=== PATIENT | female | born 1975 | race Caucasian/White ===

== ENCOUNTER → 2016-07-19 | Outpatient (REF) | payer MEDICAID ==
[~2016-07-19] MED LIST: ALBU17IN INH; ALEV220C2 PO; Albuterol INH; BACT800T OR; BUSP10TA PO; BUSP15TA47 PO; CLARINEX PO; CLIN300C OR; COLA100C PO; DICL13PA TD; DICL13PA TOP; DOXY10CA PO; EFFE37.527 PO; EFFE75CA75 PO; FERGON; FERGON PO; FERR325T3 PO; FLUO10CA8 PO; FLUO10CA9 PO; FLUO20CA9 PO; HYDR-4274 PO; IBUP-1114 PO; IBUP600T26 PO; IRON65TA PO; LIDO5DIS36 TD; MOBI7.5T10 PO; PERC5TAB6 PO; PRED20TA PO; PROZ20CA11 PO; Quetiapine Fumarate PO; SERO50TA PO; TRAZ100T4 PO; TYLENOL #3 OR; VENL37CA PO; VENTOLIN NEB; VIBR100C PO; VICO5TAB PO; VIST50CA PO; VITA200016 PO; ZOLP5TAB PO; desyrel PO
== END ==
LOC: M LAB REF 15:47
PROVIDERS: ATTEND Physician Assistant
DX: J11.1 Influenza due to unidentified influenza virus with other respiratory manifestations (principal)

== ENCOUNTER 2016-07-25 17:02 | Emergency (ER) | payer MEDICAID, OTHER ==
[2016-07-25] MEDS ORDERED: PERCOCET 5MG/325MG TAB As Ordered ONE (18:04)
--- NOTE | 2016-07-25 18:32 | REP ---
LEFT KNEE, FIVE VIEWS: HISTORY: Pain. There is no acute fracture or dislocation. There is narrowing of the joint spaces. Osteophytes are present on the femur, patella and tibia. IMPRESSION: Degenerative change as described above. Signed by Tan Frausto MD 07/25/2016 06:33 P
--- NOTE | 2016-07-25 19:00 | REPUSA ---
CLINICAL HISTORY: Pain. COMMENTS: Real time sonography with duplex doppler of the left lower extremity was performed with attention to the major deep venous structures. Evaluation reveals the left common femoral, superficial femoral and popliteal veins to be completely compressible without intraluminal thrombus. There is normal spontaneous phasic flow and augmentation. The greater saphenous/common femoral vein junction is patent. No reflux was noted. IMPRESSION: No evidence of DVT in left lower extremity.. Thank you for your kind referral of this patient.
[2016-07-25] MEDS ORDERED: OXYCODONE/APAP 5MG/325MG(BULK) 1 TAB TAB As Ordered ONE (19:07)
--- NOTE | 2016-07-25 19:14 | EDDOCDS ---
Physician Documentation [facility] Name: Selin Wynn Age: 40 yrs Sex: Female : 1975 Arrival Date: 07/25/2016 Time: 17:02 Bed I9 / 22 Private MD: Jane Crow C Disposition: 07/25/16 18:50 Discharged to Home/Self Care. Impression: Pain in left knee, Rheumatoid arthritis of left knee with involvement of other organs and systems. - Condition is Stable. - Discharge Instructions: Arthritis, Nonspecific, Knee Pain. - Prescriptions for Percocet 5- 325 mg Oral Tablet - take 1 tablet by ORAL route every 6 hours As needed MDD: 4 tabs; 20 tablet. - Medication Reconciliation, Work Release Form - 1 day, Local Pharmacy Hours form. - Follow up: Jane Crow; When: 1 - 2 days. - Problem is new. - Symptoms have improved. - Notes: follow up wiht your pcp. please obtain referral to medical staff assistant. return if worsening symptoms. use your crutches as instructed Historical: - Allergies: Coconut; PENICILLINS; - Home Meds: 1. Effexor 150mg Oral daily 2. albuterol sulfate 90 mcg/actuation Inhl HFAA 2 puffs every 4-6 hours prn 3. buspirone 15 mg Oral tab 2 times per day 4. hydroxyzine HCl 10 mg Oral tab twice a day 5. ibuprofen 800 mg Oral tab 1 tab 3 times per day 6. trazodone 100 mg Oral tab 1 tab nightly - PMHx: Depression; Asthma; Rheumatoid Arthritis; Anxiety; Anemia; - PSHx: ; Tubal ligation; sinus surgery; - Social history: Smoking status: Patient uses tobacco products, current every day smoker. No barriers to communication noted, The patient speaks fluent Pashto, Speaks appropriately for age. - Family history: Not pertinent. - : The pt / caregiver states he / she is not on anticoagulants. Home medication list is obtained from the patient, [employer] import data. - Exposure Risk Screening:: None identified. PUFF IRON OPERATOR: 07/25 17:18 LMP 07/24/2016 ead Vital Signs: 17:04 BP 123 / 71; Pulse 85; Resp 18; Temp 98.6(O); Pulse Ox 99% on R/A; Weight 74.84 kg / ct3 164.99 lbs (R); Height 5 ft. 8 in. (172.72 cm) (R); Pain 10/10; 19:13 BP 120 / 70; Pulse 82; Resp 18; Temp 98(T); Pulse Ox 99% on R/A; Pain 5/10; rs3 17:04 Body Mass Index 25.09 (74.84 kg, 172.72 cm) ct3 MDM: 17:56 oxyCODONE-acetaminophen 5 mg-325 mg 2 tabs PO once ordered. ml 17:57 Knee, Complete Ordered. EDMS 17:57 US Lower Extremity R/O DVT Ordered. EDMS 18:37 Financial registration complete. gjb 18:49 oxyCODONE-acetaminophen 4 pack 5 mg-325 mg 1 packets PO once; Dispense with pt, take as ml per instruction on package ordered. 18:49 Misc. Nursing Order ordered. ml 18:49 Misc. Nursing Order ordered. ml Administered Medications: 18:08 Drug: oxyCODONE-acetaminophen 2 tabs [oxycodone-acetaminophen 5 mg-325 mg tablet (2 jjr tabs)] Route: PO; 19:11 Drug: oxyCODONE-acetaminophen 4 pack 1 packets [oxycodone-acetaminophen 5 mg-325 mg rs3 tablet (1 tabs)] {Co-Signature: [email or web address] (Makayla Hannah RN).} Route: PO; Signatures: Dispatcher [employer] EDIA Maria G Ramires MD MD ml Knapp, Jean,RN RN Sharon Gaming RN RN rs3 Dunaway, Emily,RN RN Kasey Reich Kaila Joy RN jjcrystal Hannah RN [email or web address] HUSSEIN
--- NOTE | 2016-07-25 19:14 | EDDOCDS ---
Nurse's Notes [facility] Name: Selin Wynn Age: 40 yrs Sex: Female : 1975 Arrival Date: 07/25/2016 Time: 17:02 Bed I9 / 22 Private MD: Jane Crow C Diagnosis: Pain in left knee;Rheumatoid arthritis of left knee with involvement of other organs and systems Presentation: 07/25 17:15 Presenting complaint: Patient states: pt c/o left knee pain. no known injury. pt ead reports hx of arthritis. reports worsening pain after shopping today. Adult Sepsis Screening: The patient does not have new or worsening altered mentation. Patient's respiratory rate is less than 22. Systolic blood pressure is greater than 100. Patient has a qSOFA score of 0- Negative Sepsis Screen. Suicide/Homicide risk assessment- the patient denies having any suicidal and/or homicidal ideations and does not present with any other emotional, behavioral or mental health complaints. Status: Patient is not a financial services officer or dependent. Transition of care: patient was not received from another setting of care. 17:15 Acuity: JT Level 4 ead 17:15 Method Of Arrival: Walkin/Carried/Asstd ead Triage Assessment: 17:18 General: Appears in no apparent distress, Behavior is appropriate for age, cooperative. ead Pain: Location: left knee Pain currently is 10 out of 10 on a pain scale. HIV screening NA for this visit Offered previously. Respiratory: Respiratory effort is even, unlabored. Musculoskeletal: Reports pain in left knee. FIRER KILN: 17:18 LMP 07/24/2016 ead Historical: - Allergies: Coconut; PENICILLINS; - Home Meds: 1. Effexor 150mg Oral daily 2. albuterol sulfate 90 mcg/actuation Inhl HFAA 2 puffs every 4-6 hours prn 3. buspirone 15 mg Oral tab 2 times per day 4. hydroxyzine HCl 10 mg Oral tab twice a day 5. ibuprofen 800 mg Oral tab 1 tab 3 times per day 6. trazodone 100 mg Oral tab 1 tab nightly - PMHx: Depression; Asthma; Rheumatoid Arthritis; Anxiety; Anemia; - PSHx: ; Tubal ligation; sinus surgery; - Social history: Smoking status: Patient uses tobacco products, current every day smoker. No barriers to communication noted, The patient speaks fluent Luxembourgish, Speaks appropriately for age. - Family history: Not pertinent. - : The pt / caregiver states he / she is not on anticoagulants. Home medication list is obtained from the patient, [employer] import data. - Exposure Risk Screening:: None identified. Screenin:36 Screening information is obtained from the patient. Fall risk: No risks identified. jmk Assistance ADL's: requires no assistance with activities of daily living. Abuse/DV Screen: The patient / caregiver reports he/she is: not in a situation that causes fear, pain or injury. Nutritional screening: No deficits noted. Advance Directives: Currently, there is. Advance Directives: There is no active DNR order. There is no living will. There is no Power of Elevator Constructor Helper. Advance directive information has not previously been placed in an [facility] medical record. Further advance directive information is declined. home support is adequate. Assessment: 17:36 General: Appears in no apparent distress, states history of bilateral knee pain, left jmk is greater than right. without redness swelling or ecchymosis/ no increased warmth appreciated. Is able to SLR. reports increased pain to posterior left knee with attempted dorsiflexion. 19:13 Reassessment: Patient appears in no apparent distress at this time. Patient states rs3 feeling better. Patient states symptoms have improved. Vital Signs: 17:04 BP 123 / 71; Pulse 85; Resp 18; Temp 98.6(O); Pulse Ox 99% on R/A; Weight 74.84 kg (R); ct3 Height 5 ft. 8 in. (172.72 cm) (R); Pain 10/10; 19:13 BP 120 / 70; Pulse 82; Resp 18; Temp 98(T); Pulse Ox 99% on R/A; Pain 5/10; rs3 17:04 Body Mass Index 25.09 (74.84 kg, 172.72 cm) ct3 Vitals: 17:04 Log In Time: July 25, 2016 at 17:01. ct3 ED Course: 17:03 Patient visited by Ashley Valdez PCA. ct3 17:03 Jane Crow is Private Physician. ct3 17:03 Patient moved to Waiting ct3 17:06 Patient moved to Pre RCE ct3 17:16 Triage Initiated ead 17:28 Kaila White, RN is Primary Nurse. js13 17:28 Patient moved to I9 js13 17:31 Maria G Ramires MD is Attending Physician. ml 17:31 Patient visited by Maria G Ramires MD. ml 17:38 Patient visited by Luther Richey,RN. k 18:07 Patient moved to [facility] br3 18:29 Patient moved to I9 br3 18:50 Jane Crow is Referral Physician. ml 19:06 Primary Nurse role handed off by Kaila White, RN anders 19:12 No IV's were initiated during this patient's visit. No procedures done that require rs3 assistance. Administered Medications: 18:08 Drug: oxyCODONE-acetaminophen 2 tabs [oxycodone-acetaminophen 5 mg-325 mg tablet (2 jjr tabs)] Route: PO; 19:11 Drug: oxyCODONE-acetaminophen 4 pack 1 packets [oxycodone-acetaminophen 5 mg-325 mg rs3 tablet (1 tabs)] {Co-Signature: [email or web address] (Makayla Hannah RN).} Route: PO; Order Results: There are currently no results for this order. Outcome: 18:50 Discharge ordered by Provider. 19:13 Patient left the ED. rs3 Signatures: Maria G Ramires MD MD ml Knapp, Jean,RN Kaila Brito, RN RN jjSharon WellsRN AD rs3 Alvina White br3 Ashley Valdez, GROUNDS PERSON GROUNDS PERSON ct3 Makayla Hannah RN RN [id number] Zaida Zamudio RN RN ead Jennifer Sullivan RN [email or web address] MTDD
--- NOTE | 2016-07-27 20:14 | EDDOCDS ---
Physician Documentation [facility] Name: Selin Wynn Age: 40 yrs Sex: Female : 1975 Arrival Date: 07/25/2016 Time: 17:02 Bed I9 / 22 Private MD: Jane Crow C Disposition: 07/25/16 18:50 Discharged to Home/Self Care. Impression: Pain in left knee, Rheumatoid arthritis of left knee with involvement of other organs and systems. - Condition is Stable. - Discharge Instructions: Arthritis, Nonspecific, Knee Pain. - Prescriptions for Percocet 5- 325 mg Oral Tablet - take 1 tablet by ORAL route every 6 hours As needed MDD: 4 tabs; 20 tablet. - Medication Reconciliation, Work Release Form - 1 day, Local Pharmacy Hours form. - Follow up: Jane Crow; When: 1 - 2 days. - Problem is new. - Symptoms have improved. - Notes: follow up wiht your pcp. please obtain referral to short goods drier. return if worsening symptoms. use your crutches as instructed Historical: - Allergies: Coconut; PENICILLINS; - Home Meds: 1. Effexor 150mg Oral daily 2. albuterol sulfate 90 mcg/actuation Inhl HFAA 2 puffs every 4-6 hours prn 3. buspirone 15 mg Oral tab 2 times per day 4. hydroxyzine HCl 10 mg Oral tab twice a day 5. ibuprofen 800 mg Oral tab 1 tab 3 times per day 6. trazodone 100 mg Oral tab 1 tab nightly - PMHx: Depression; Asthma; Rheumatoid Arthritis; Anxiety; Anemia; - PSHx: ; Tubal ligation; sinus surgery; - Social history: Smoking status: Patient uses tobacco products, current every day smoker. No barriers to communication noted, The patient speaks fluent Swedish, Speaks appropriately for age. - Family history: Not pertinent. - : The pt / caregiver states he / she is not on anticoagulants. Home medication list is obtained from the patient, [employer] import data. - Exposure Risk Screening:: None identified. CURRICULUM DEVELOPMENT SPECIALIST: 07/25 17:18 LMP 07/24/2016 ead Vital Signs: 17:04 BP 123 / 71; Pulse 85; Resp 18; Temp 98.6(O); Pulse Ox 99% on R/A; Weight 74.84 kg / ct3 164.99 lbs (R); Height 5 ft. 8 in. (172.72 cm) (R); Pain 10/10; 19:13 BP 120 / 70; Pulse 82; Resp 18; Temp 98(T); Pulse Ox 99% on R/A; Pain 5/10; rs3 17:04 Body Mass Index 25.09 (74.84 kg, 172.72 cm) ct3 MDM: 17:56 oxyCODONE-acetaminophen 5 mg-325 mg 2 tabs PO once ordered. ml 17:57 Knee, Complete Ordered. EDMS 17:57 US Lower Extremity R/O DVT Ordered. EDMS 18:37 Financial registration complete. gjb 18:49 oxyCODONE-acetaminophen 4 pack 5 mg-325 mg 1 packets PO once; Dispense with pt, take as ml per instruction on package ordered. 18:49 Misc. Nursing Order ordered. ml 18:49 Misc. Nursing Order ordered. ml 19:26 [facility] Payment Agreement was scanned into [employer] and attached to record. gjb 07/26 10:36 T-Sheet-- Draft Copy was scanned into [employer] and attached to record. gb 10:36 Radiology Report was scanned into [employer] and attached to record. gb Administered Medications: 07/25 18:08 Drug: oxyCODONE-acetaminophen 2 tabs [oxycodone-acetaminophen 5 mg-325 mg tablet (2 jjr tabs)] Route: PO; 19:11 Drug: oxyCODONE-acetaminophen 4 pack 1 packets [oxycodone-acetaminophen 5 mg-325 mg rs3 tablet (1 tabs)] {Co-Signature: [email or web address] (Makayla Hannah RN).} Route: PO; Signatures: Dispatcher [employer]Host EDMS Maria G Ramires MD MD ml Knapp, JeanRN RN Estefanía Snowden, Reg Reg Sharon SpicerRN RN rs3 Zaida ZamudioRN RN aKsey Reich Kaila Joy RN jjr Makayla Hannah RN [email or web address] The chart was reviewed and I authenticate all verbal orders and agree with the evaluation and treatment provided.Attachments: 19:26 [facility] Payment Agreement gjb 07/26 10:36 T-Sheet-- Draft Copy gb Chart Complete MTDD
--- NOTE | 2016-07-27 20:15 | EDDOCDS ---
Physician Documentation [facility] Name: Selin Wynn Age: 40 yrs Sex: Female : 1975 Arrival Date: 07/25/2016 Time: 17:02 Bed I9 / 22 Private MD: Jane Crow C Disposition: 07/25/16 18:50 Discharged to Home/Self Care. Impression: Pain in left knee, Rheumatoid arthritis of left knee with involvement of other organs and systems. - Condition is Stable. - Discharge Instructions: Arthritis, Nonspecific, Knee Pain. - Prescriptions for Percocet 5- 325 mg Oral Tablet - take 1 tablet by ORAL route every 6 hours As needed MDD: 4 tabs; 20 tablet. - Medication Reconciliation, Work Release Form - 1 day, Local Pharmacy Hours form. - Follow up: Jane Crow; When: 1 - 2 days. - Problem is new. - Symptoms have improved. - Notes: follow up wiht your pcp. please obtain referral to delivery merchandiser. return if worsening symptoms. use your crutches as instructed Historical: - Allergies: Coconut; PENICILLINS; - Home Meds: 1. Effexor 150mg Oral daily 2. albuterol sulfate 90 mcg/actuation Inhl HFAA 2 puffs every 4-6 hours prn 3. buspirone 15 mg Oral tab 2 times per day 4. hydroxyzine HCl 10 mg Oral tab twice a day 5. ibuprofen 800 mg Oral tab 1 tab 3 times per day 6. trazodone 100 mg Oral tab 1 tab nightly - PMHx: Depression; Asthma; Rheumatoid Arthritis; Anxiety; Anemia; - PSHx: ; Tubal ligation; sinus surgery; - Social history: Smoking status: Patient uses tobacco products, current every day smoker. No barriers to communication noted, The patient speaks fluent Japanese, Speaks appropriately for age. - Family history: Not pertinent. - : The pt / caregiver states he / she is not on anticoagulants. Home medication list is obtained from the patient, [employer] import data. - Exposure Risk Screening:: None identified. LIFE SCIENCE RESEARCH ASSISTANT: 07/25 17:18 LMP 07/24/2016 ead Vital Signs: 17:04 BP 123 / 71; Pulse 85; Resp 18; Temp 98.6(O); Pulse Ox 99% on R/A; Weight 74.84 kg / ct3 164.99 lbs (R); Height 5 ft. 8 in. (172.72 cm) (R); Pain 10/10; 19:13 BP 120 / 70; Pulse 82; Resp 18; Temp 98(T); Pulse Ox 99% on R/A; Pain 5/10; rs3 17:04 Body Mass Index 25.09 (74.84 kg, 172.72 cm) ct3 MDM: 17:56 oxyCODONE-acetaminophen 5 mg-325 mg 2 tabs PO once ordered. ml 17:57 Knee, Complete Ordered. EDMS 17:57 US Lower Extremity R/O DVT Ordered. EDMS 18:37 Financial registration complete. gjb 18:49 oxyCODONE-acetaminophen 4 pack 5 mg-325 mg 1 packets PO once; Dispense with pt, take as ml per instruction on package ordered. 18:49 Misc. Nursing Order ordered. ml 18:49 Misc. Nursing Order ordered. ml 19:26 [facility] Payment Agreement was scanned into [employer] and attached to record. gjb 07/26 10:36 T-Sheet-- Draft Copy was scanned into [employer] and attached to record. gb 10:36 Radiology Report was scanned into [employer] and attached to record. gb Administered Medications: 07/25 18:08 Drug: oxyCODONE-acetaminophen 2 tabs [oxycodone-acetaminophen 5 mg-325 mg tablet (2 jjr tabs)] Route: PO; 19:11 Drug: oxyCODONE-acetaminophen 4 pack 1 packets [oxycodone-acetaminophen 5 mg-325 mg rs3 tablet (1 tabs)] {Co-Signature: [email or web address] (Makayla Hannah RN).} Route: PO; Signatures: Dispatcher [employer] EDMS Maria G Ramries MD MD ml Knapp, JeanRN RN Estefanía Snowden, Reg Reg Sharon SpicerRN RN rs3 Zaida ZamudioRN RN Kasey Reich Kaila Joy RN jjr Makayla Hannah RN [email or web address] The chart was reviewed and I authenticate all verbal orders and agree with the evaluation and treatment provided.Attachments: 19:26 [facility] Payment Agreement gjb 07/26 10:36 T-Sheet-- Draft Copy gb Chart Complete MTDD
--- NOTE | 2016-07-27 20:15 | EDDOCDS ---
Nurse's Notes [facility] Name: Selin Wynn Age: 40 yrs Sex: Female : 1975 Arrival Date: 07/25/2016 Time: 17:02 Bed I9 / 22 Private MD: Jane Crow C Diagnosis: Pain in left knee;Rheumatoid arthritis of left knee with involvement of other organs and systems Presentation: 07/25 17:15 Presenting complaint: Patient states: pt c/o left knee pain. no known injury. pt ead reports hx of arthritis. reports worsening pain after shopping today. Adult Sepsis Screening: The patient does not have new or worsening altered mentation. Patient's respiratory rate is less than 22. Systolic blood pressure is greater than 100. Patient has a qSOFA score of 0- Negative Sepsis Screen. Suicide/Homicide risk assessment- the patient denies having any suicidal and/or homicidal ideations and does not present with any other emotional, behavioral or mental health complaints. Status: Patient is not a park services specialist or dependent. Transition of care: patient was not received from another setting of care. 17:15 Acuity: JT Level 4 ead 17:15 Method Of Arrival: Walkin/Carried/Asstd ead Triage Assessment: 17:18 General: Appears in no apparent distress, Behavior is appropriate for age, cooperative. ead Pain: Location: left knee Pain currently is 10 out of 10 on a pain scale. HIV screening NA for this visit Offered previously. Respiratory: Respiratory effort is even, unlabored. Musculoskeletal: Reports pain in left knee. JIGGER CROWN POUNCING MACHINE OPERATOR: 17:18 LMP 07/24/2016 ead Historical: - Allergies: Coconut; PENICILLINS; - Home Meds: 1. Effexor 150mg Oral daily 2. albuterol sulfate 90 mcg/actuation Inhl HFAA 2 puffs every 4-6 hours prn 3. buspirone 15 mg Oral tab 2 times per day 4. hydroxyzine HCl 10 mg Oral tab twice a day 5. ibuprofen 800 mg Oral tab 1 tab 3 times per day 6. trazodone 100 mg Oral tab 1 tab nightly - PMHx: Depression; Asthma; Rheumatoid Arthritis; Anxiety; Anemia; - PSHx: ; Tubal ligation; sinus surgery; - Social history: Smoking status: Patient uses tobacco products, current every day smoker. No barriers to communication noted, The patient speaks fluent Estonian, Speaks appropriately for age. - Family history: Not pertinent. - : The pt / caregiver states he / she is not on anticoagulants. Home medication list is obtained from the patient, [employer] import data. - Exposure Risk Screening:: None identified. Screenin:36 Screening information is obtained from the patient. Fall risk: No risks identified. jmk Assistance ADL's: requires no assistance with activities of daily living. Abuse/DV Screen: The patient / caregiver reports he/she is: not in a situation that causes fear, pain or injury. Nutritional screening: No deficits noted. Advance Directives: Currently, there is. Advance Directives: There is no active DNR order. There is no living will. There is no Power of Senior Maintenance Machinist. Advance directive information has not previously been placed in an [facility] medical record. Further advance directive information is declined. home support is adequate. Assessment: 17:36 General: Appears in no apparent distress, states history of bilateral knee pain, left jmk is greater than right. without redness swelling or ecchymosis/ no increased warmth appreciated. Is able to SLR. reports increased pain to posterior left knee with attempted dorsiflexion. 19:13 Reassessment: Patient appears in no apparent distress at this time. Patient states rs3 feeling better. Patient states symptoms have improved. Vital Signs: 17:04 BP 123 / 71; Pulse 85; Resp 18; Temp 98.6(O); Pulse Ox 99% on R/A; Weight 74.84 kg (R); ct3 Height 5 ft. 8 in. (172.72 cm) (R); Pain 10/10; 19:13 BP 120 / 70; Pulse 82; Resp 18; Temp 98(T); Pulse Ox 99% on R/A; Pain 5/10; rs3 17:04 Body Mass Index 25.09 (74.84 kg, 172.72 cm) ct3 Vitals: 17:04 Log In Time: July 25, 2016 at 17:01. ct3 ED Course: 17:03 Patient visited by Ashley Valdez PCA. ct3 17:03 Jane Crow is Private Physician. ct3 17:03 Patient moved to Waiting ct3 17:06 Patient moved to Pre RCE ct3 17:16 Triage Initiated ead 17:28 Kaila White, RN is Primary Nurse. js13 17:28 Patient moved to I js13 17:31 Maria G Ramires MD is Attending Physician. ml 17:31 Patient visited by Maria G Ramires MD. ml 17:38 Patient visited by Luther Richey,AD. jmk 18:07 Patient moved to Ultrasound br3 18:29 Patient moved to I br3 18:50 Jane Crow is Referral Physician. ml 19:06 Primary Nurse role handed off by Kaila White, RN jjr 19:12 No IV's were initiated during this patient's visit. No procedures done that require rs3 assistance. 19:17 Knee, Complete Returned. EDMS 19:17 US Lower Extremity R/O DVT Returned. EDMS 19:26 [facility] Payment Agreement was scanned into [employer] and attached to record. gjb 02 10:36 T-Sheet-- Draft Copy was scanned into [employer] and attached to record. gb 10:36 Radiology Report was scanned into [employer] and attached to record. gb Administered Medications: 07/25 18:08 Drug: oxyCODONE-acetaminophen 2 tabs [oxycodone-acetaminophen 5 mg-325 mg tablet (2 jjr tabs)] Route: PO; 19:11 Drug: oxyCODONE-acetaminophen 4 pack 1 packets [oxycodone-acetaminophen 5 mg-325 mg rs3 tablet (1 tabs)] {Co-Signature: [email or web address] (Makayla Hannah RN).} Route: PO; Order Results: Radiology Order: Knee, Complete Test: Knee, Complete REASON FOR EXAMINATION: hx RA - pain; LEFT KNEE, FIVE VIEWS:; ; HISTORY: Pain.; ; There is no acute fracture or dislocation. There is narrowing of the joint; spaces. Osteophytes are present on the femur, patella and tibia.; ; IMPRESSION:; ; Degenerative change as described above.; ; ; Signed by; Tan Frausto MD 07/25/2016 06:33 P; Radiology Order: US Lower Extremity R/O DVT Test: US Lower Extremity R/O DVT REASON FOR EXAMINATION: pain; ; CLINICAL HISTORY: Pain.; COMMENTS:; Real time sonography with duplex doppler of the left lower extremity was performed with attention to; the major deep venous structures.; Evaluation reveals the left common femoral, superficial femoral and popliteal veins to be completely; compressible without intraluminal thrombus. There is normal spontaneous phasic flow and augmentation.; The greater saphenous/common femoral vein junction is patent. No reflux was noted.; IMPRESSION:; No evidence of DVT in left lower extremity..; Thank you for your kind referral of this patient.; ; Outcome: 18:50 Discharge ordered by Provider. ml 19:13 Patient left the ED. rs3 Signatures: Dispatcher [employer] EDMS Maria G Ramires MD MD ml Luther Richey,RN RN Estefanía Snowden, Kaila Saunders, AD RN Sharon Ng RN RN rs3 Alvina White br3 Ashley Valdez, ENDBANDER ENDBANDER ct3 Makayla Hannah,RN RN js13 Zaida Zamudio RN RN ead Beck, Gabriela gjb Jennifer Sullivan RN [email or web address] Chart Complete MTDTong
== END 2016-07-25 19:13 | disposition home or self-care (01) ==
LOC: M ED 17:02
DX: M25.562 Pain in left knee (principal); F32.9 Major depressive disorder, single episode, unspecified; F41.9 Anxiety disorder, unspecified; D64.9 Anemia, unspecified; J45.909 Unspecified asthma, uncomplicated; M06.9 Rheumatoid arthritis, unspecified; Z72.0 Tobacco use; Z79.899 Other long term (current) drug therapy; Z91.018 Allergy to other foods; Z88.0 Allergy status to penicillin

== ENCOUNTER → 2016-08-25 | Outpatient (REF) | payer OTHER | LOC: M LAB REF 12:47 | PROVIDERS: ATTEND Physician Assistant Medical | DX: N39.0 Urinary tract infection, site not specified (principal) ==

== ENCOUNTER 2016-10-03 20:30 | Emergency (ER) | payer OTHER ==
[~2016-10-03 20:30] MED LIST changes: -COLA100C PO; +COLA100C3 PO
[2016-10-03] MEDS ORDERED: HYDR10T (20:40)
[2016-10-03] MEDS ORDERED: VENL150C43 (20:40)
[2016-10-03] MEDS ORDERED: CELE10TA PO (20:40)
[2016-10-03 22:27] LABS: MEAN CORPUSCULAR HEMOGLOBIN 23.4 pg (27.0-33.0); MEAN CORPUSCULAR HGB CONC 30.3 g/dl (32.0-36.5); MEAN CORPUSCULAR VOLUME 77.2 fl (80.0-96.0); RED CELL DISTRIBUTION WIDTH 17.7 % (11.5-14.5); WHITE BLOOD COUNT 5.8 K/mm3 (4.0-10.0)
[2016-10-03 22:40] LABS: CONTROL LINE HCG INT CTR LINE PRESENT
[2016-10-03 22:46] LABS: METHADONE URINE NEGATIVE (NEGATIVE)
[2016-10-03 22:58] LABS: ALBUMIN 3.8 GM/DL (3.2-5.2); ALBUMIN/GLOBULIN RATIO 1.15 (1.00-1.93); ALKALINE PHOSPHATASE 72 U/L (45-117); ALT/SGPT 15 U/L (12-78); ANION GAP 13 MEQ/L (8-16); AST/SGOT 9 U/L (15-37); BILIRUBIN,DIRECT < 0.1 MG/DL (0.0-0.2); BILIRUBIN,TOTAL 0.2 MG/DL (0.2-1.0); BLOOD UREA NITROGEN 8 MG/DL (7-18); CALCIUM LEVEL 7.9 MG/DL (8.5-10.1); CARBON DIOXIDE LEVEL 20 MEQ/L (21-32); CHLORIDE LEVEL 112 MEQ/L (98-107); CREATININE FOR GFR 0.71 MG/DL (0.55-1.02); GLOMERULAR FILTRATION RATE > 60.0 (>60); GLUCOSE, FASTING 89 MG/DL (70-105); POTASSIUM SERUM 3.5 MEQ/L (3.5-5.1); SODIUM LEVEL 145 MEQ/L (136-145); TOTAL PROTEIN 7.1 GM/DL (6.4-8.2)
[2016-10-04 04:02] VITALS: BP 119/76
== END 2016-10-04 04:30 | disposition home or self-care (01) ==
LOC: M ED 21:55
DX: F10.129 Alcohol abuse with intoxication, unspecified (principal); F32.9 Major depressive disorder, single episode, unspecified; F17.200 Nicotine dependence, unspecified, uncomplicated; Z88.0 Allergy status to penicillin; Z88.1 Allergy status to other antibiotic agents; Z88.2 Allergy status to sulfonamides; Z91.018 Allergy to other foods; Z79.899 Other long term (current) drug therapy
CPT/HCPCS: 36415; 80048; 80076; 80306; 84443; 84703; 85027; 99285; G0480

== ENCOUNTER → 2017-02-02 | Outpatient (CLI) | payer OTHER ==
[~2017-02-02] MED LIST changes: +ALBU17IN; +ANORO; +AZIT-12 PO; +CELE10TA PO; +CELE20TA PO; -COLA100C3 PO; +COLA100C5 PO; +D 50CAP; +DOXY100T2 PO; -DOXY10CA PO; +FLUO20CA19 PO; -FLUO20CA9 PO; +GABA-279; +HYDR-3713 PO; -HYDR-4274 PO; +HYDR-643; +HYDR50TA70 PO; +IBUP-1022 PO; -IBUP600T26 PO; -LIDO5DIS36 TD; +LIDO5DIS41 TD; +LOVE1INJ SC; +MOBI4TAB PO; -MOBI7.5T10 PO; +OLAN5TAB; +OXYC1TAB23 PO; +PERC5TAB12 PO; -PERC5TAB6 PO; +REME15TA; +TRAZ-136 PO; -TRAZ100T4 PO; +TRAZ1TAB14 PO; +VENL150C43; +VENL37.52 PO; -VENL37CA PO
[2017-02-02 14:55] LABS: BASO % 0.5 % (0.0-1.0); EOS # 0.1 K/mm3 (0.0-0.50); LYMPH # 1.8 K/mm3 (1.5-4.5); LYMPH % 25.2 % (24.0-44.0); MEAN CORPUSCULAR HEMOGLOBIN 23.7 pg (27.0-33.0); MEAN CORPUSCULAR VOLUME 76.2 fl (80.0-96.0); MONO # 0.3 K/mm3 (0.0-0.8); NEUTROPHILS # 4.4 K/mm3 (1.8-7.7); NEUTROPHILS % 65.8 % (36.0-66.0); RED CELL DISTRIBUTION WIDTH 16.5 % (11.5-14.5); WHITE BLOOD COUNT 6.6 K/mm3 (4.0-10.0)
[2017-02-02 15:28] LABS: ALBUMIN 3.9 GM/DL (3.2-5.2); ALBUMIN/GLOBULIN RATIO 0.98 (1.00-1.93); ALKALINE PHOSPHATASE 80 U/L (45-117); ALT/SGPT 13 U/L (12-78); ANION GAP 10 MEQ/L (8-16); AST/SGOT 7 U/L (15-37); BILIRUBIN,TOTAL 0.3 MG/DL (0.2-1.0); BLOOD UREA NITROGEN 13 MG/DL (7-18); CARBON DIOXIDE LEVEL 23 MEQ/L (21-32); CHLORIDE LEVEL 107 MEQ/L (98-107); CHOLESTEROL LEVEL 147 MG/DL (<200); CREATININE FOR GFR 0.73 MG/DL (0.55-1.02); GLOMERULAR FILTRATION RATE > 60.0 (>60); GLUCOSE, FASTING 85 MG/DL (70-105); POTASSIUM SERUM 4.4 MEQ/L (3.5-5.1); SODIUM LEVEL 140 MEQ/L (136-145); TOTAL PROTEIN 7.9 GM/DL (6.4-8.2); TRIGLYCERIDES LEVEL 64 MG/DL (<150)
--- NOTE | 2017-02-02 15:52 | REP ---
Left knee five views: Comparison is 07/25/2016. There is tricompartment osteoarthritis, not significantly changed. I suspect there is a suprapatellar effusion, not present previously. Mineralization is normal. No calcifications. No fracture or dislocation. Impression: Tricompartment osteoarthritis and probable suprapatellar effusion. Signed by Jose Crane MD 02/02/2017 03:43 P
[2017-02-04 00:06] LABS: Lyme Disease IgG/IgM Antibodie <0.91 ISR (0.00-0.90); Lyme Disease IgM Ab Quantitati <0.80 index (0.00-0.79)
[2017-02-06 09:49] LABS: ALBUMIN 4.28 GM/DL (3.29-5.55); ALBUMIN % 54.2 % (55.8-66.1); GAMMA GLOBULIN % 16.9 % (11.1-18.8)
== END ==
LOC: EDSTATUS 13:02 → M LAB 14:07
PROVIDERS: ATTEND Physician Assistant Medical
DX: E78.2 Mixed hyperlipidemia (principal); M17.12 Unilateral primary osteoarthritis, left knee; M25.562 Pain in left knee

== ENCOUNTER 2017-03-12 11:29 | Emergency (ER) | payer OTHER ==
[~2017-03-12] VITALS: Ht 175.3 cm; Wt 77.3 kg
[~2017-03-12 11:29] MED LIST changes: -ALBU17IN; -ANORO; -AZIT-12 PO; -CELE20TA PO; -D 50CAP; -GABA-279; -HYDR-3713 PO; -LOVE1INJ SC; -OLAN5TAB; -OXYC1TAB23 PO; -REME15TA; -TRAZ1TAB14 PO
[2017-03-12] MEDS ORDERED: CELE20TA PO (11:51)
[2017-03-12] MEDS ORDERED: BUSP15TA47 PO (11:51)
[2017-03-12] MEDS ORDERED: PERCOCET 5MG/325MG TAB PO ONE (12:45)
[2017-03-12] MEDS ORDERED: OXYC1TAB23 PO ×2 (14:07→14:44)
[2017-03-12 14:49] VITALS: BP 131/76
--- NOTE | 2017-03-13 13:29 | REP ---
RIGHT ANKLE SERIES: Four views of the right ankle are performed. There is a nondisplaced oblique fracture of the distal fibula. There may be tiny avulsion fractures of the medial malleolus. There is soft tissue swelling. The ankle mortise is anatomic. Please note that the acute fracture of the distal fibula is superimposed on an old fracture sustained approximately 1 year ago. Signed by Jose Lawrence MD 03/14/2017 05:12 P
[2017-03-17] MEDS ORDERED: HYDR-3713 PO (13:25)
== END 2017-03-12 15:03 | disposition home or self-care (01) ==
LOC: M ED 11:29
DX: S82.831A Other fracture of upper and lower end of right fibula, initial encounter for closed fracture (principal); X58.XXXA Exposure to other specified factors, initial encounter; Y92.89 Other specified places as the place of occurrence of the external cause; Y93.89 Activity, other specified; Y99.8 Other external cause status; J45.909 Unspecified asthma, uncomplicated; F41.9 Anxiety disorder, unspecified; F33.9 Major depressive disorder, recurrent, unspecified; Z79.899 Other long term (current) drug therapy

== ENCOUNTER 2017-03-21 05:42 | Day surgery (SDC) | payer OTHER ==
[2017-03-21] VITALS (7 sets, daily range): BP systolic 114–140; BP diastolic 59–80
[~2017-03-21] VITALS: Ht 167.6 cm; Wt 79.0 kg
[~2017-03-21 05:42] MED LIST changes: +CELE20TA PO; +HYDR-3713 PO; +OXYC1TAB23 PO
[2017-03-21] MEDS ORDERED: LIDOCAINE 1% MDV 20ML VIAL ONE (05:43)
[2017-03-21] MEDS ORDERED: ROPIvacaine 0.5% 30 ML INJECTION (J2795) ONE (05:43)
[2017-03-21] MEDS ORDERED: dexameTHASONE 10 MG/1 ML VIAL PRES.FREE (J1100) ONE (05:43)
[2017-03-21] MEDS ORDERED: LIDOCAINE 1% MDV 20ML VIAL SC ONE (06:00)
[2017-03-21] MEDS ORDERED: LR 1,000 ML IV ONE (06:00)
[2017-03-21] MEDS ORDERED: VANCOMYCIN HCL 1,000 MG, VIAL MATE ADAPTER 1 EACH in D5W 250 ML IV SCH (06:15)
[2017-03-21] MEDS ORDERED: VANCOMYCIN HCL 1,000 MG, VIAL MATE ADAPTER 1 EACH in D5W 250 ML IV ONE (06:15)
[2017-03-21] MEDS ORDERED: fentaNYL 100 MCG/2 ML INJECTION (J3010) As Ordered ONE ×2 (07:01→07:57)
[2017-03-21] MEDS ORDERED: MIDAZOLAM INJ 2 MG/2 ML VIAL (J2250) As Ordered ONE ×2 (07:01→07:57)
[2017-03-21] MEDS: MIDAZOLAM INJ 2 MG/2 ML VIAL (J2250) IV SCH ×2 (07:22→07:23)
[2017-03-21] MEDS ORDERED: PROPOFOL 500 MG/50 ML VIAL As Ordered ONE (07:57)
[2017-03-21] MEDS ORDERED: dexameTHASONE 4 MG/ML 1ML VIAL (J1100) As Ordered ONE (07:57)
[2017-03-21] MEDS ORDERED: fentaNYL 100 MCG/2 ML INJECTION (J3010) IV ONE (08:00)
[2017-03-21] MEDS ORDERED: METOCLOPRAMIDE INJ 10MG/2ML VIAL (J2765) As Ordered ONE (08:01)
[2017-03-21] MEDS ORDERED: HYDROmorphone HCL 2 MG/ML 1ML VIAL (J1170) As Ordered ONE (08:48)
[2017-03-21] MEDS ORDERED: ONDANSETRON 4MG/2ML VIAL (J2405) As Ordered ONE (09:01)
[2017-03-21] MEDS ORDERED: fentaNYL 100 MCG/2 ML INJECTION (J3010) IV PRN (10:15)
[2017-03-21] MEDS ORDERED: HYDROmorphone HCL 1 MG/ML SYRINGE (J1170) IV PRN (10:15)
[2017-03-21] MEDS ORDERED: FLEET ENEMA PR PRN (10:15)
[2017-03-21] MEDS ORDERED: ONDANSETRON 4MG/2ML VIAL (J2405) IV PRN ×2 (10:15)
[2017-03-21] MEDS ORDERED: PERCOCET 5MG/325MG TAB PO PRN (10:15)
[2017-03-21] MEDS ORDERED: oxyCODONE 5MG TAB PO PRN ×2 (10:15)
[2017-03-21] MEDS ORDERED: ACETAMINOPHEN TAB 650MG DOSE (2X325MG) PO PRN (10:15)
[2017-03-21] MEDS ORDERED: MORPHINE 2 MG/ML 1ML SYRINGE IV PRN (10:15)
[2017-03-21] MEDS ORDERED: LR 1,000 ML IV SCH (10:15)
--- NOTE | 2017-03-21 10:34 | REP ---
RIGHT ANKLE SERIES: EIGHT VIEWS. HISTORY: Fracture. Intraoperative films. 53 seconds of fluoroscopy time is reported. FINDINGS: A sequence of eight last image hold fluoroscopic spot radiographs of the right ankle document open reduction internal fixation for distal fibular fracture. Signed by Arash Baca MD 03/21/2017 03:28 P
[2017-03-21] MEDS ORDERED: NICOTINE 21MG/24HR 1 EA TRANSDERMAL TD ONE (10:45)
[2017-03-21] MEDS: LR 1,000 ML IV SCH ×3 (12:25→20:15)
[2017-03-21] MEDS: VITAMIN D 1,000 INTERNATIONAL UNITS TABLET PO SCH (13:52)
[2017-03-21] MEDS: VANCOMYCIN HCL 1,000 MG, VIAL MATE ADAPTER 1 EACH in D5W 250 ML IV SCH (19:05)
[2017-03-21] MEDS ORDERED: traZODone 100 MG TAB PO PRN (21:45)
[2017-03-22] MEDS: oxyCODONE 5MG TAB PO PRN ×3 (00:03→11:40)
[2017-03-22 06:00] VITALS: BP 134/74
[2017-03-22] MEDS: VANCOMYCIN HCL 1,000 MG, VIAL MATE ADAPTER 1 EACH in D5W 250 ML IV SCH (06:36)
[2017-03-22] MEDS ORDERED: LOVE1INJ SC (08:18)
[2017-03-22] MEDS ORDERED: PERC5TAB12 PO (08:29)
[2017-03-22] MEDS: VITAMIN D 1,000 INTERNATIONAL UNITS TABLET PO SCH (08:33)
[2017-03-22] MEDS ORDERED: ENOXAPARIN 40 MG/0.4 ML SYRINGE (J1650) SC SCH (09:00)
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
== END 2017-03-22 13:00 | disposition home or self-care (01) ==
LOC: M SDC 05:42 → M MS5PR 11:35 → M SDC 03-22 13:00
PROVIDERS: ATTEND Orthopaedic Surgery
DX: S82.61XA Displaced fracture of lateral malleolus of right fibula, initial encounter for closed fracture (principal); X58.XXXA Exposure to other specified factors, initial encounter; Y92.89 Other specified places as the place of occurrence of the external cause; Y93.89 Activity, other specified; Y99.8 Other external cause status; R06.02 Shortness of breath; M06.9 Rheumatoid arthritis, unspecified; F41.9 Anxiety disorder, unspecified; F32.9 Major depressive disorder, single episode, unspecified; R05 Cough; J45.909 Unspecified asthma, uncomplicated; J44.9 Chronic obstructive pulmonary disease, unspecified; R06.83 Snoring; N28.9 Disorder of kidney and ureter, unspecified; Z88.0 Allergy status to penicillin; Z88.1 Allergy status to other antibiotic agents; Z88.2 Allergy status to sulfonamides; Z79.899 Other long term (current) drug therapy; Z72.0 Tobacco use; Z98.51 Tubal ligation status
CPT/HCPCS: 27792; 64445; 73610; 96372; 96374; 96375; 96376; 97161; C1776

== ENCOUNTER 2017-03-30 18:51 | Emergency (ER) | payer OTHER ==
[~2017-03-30] VITALS: Ht 175.3 cm; Wt 72.7 kg
[~2017-03-30 18:51] MED LIST changes: +LOVE1INJ SC
[2017-03-30] MEDS ORDERED: ALBU17IN (19:22)
[2017-03-30] MEDS ORDERED: REME15TA (19:22)
[2017-03-30] MEDS ORDERED: ANORO (19:22)
[2017-03-30] MEDS ORDERED: OLAN5TAB (19:22)
[2017-03-30] MEDS ORDERED: TRAZ1TAB14 PO (19:22)
[2017-03-30] MEDS ORDERED: PERCOCET 5MG/325MG TAB PO ONE (20:30)
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
[2017-03-30 21:47] VITALS: BP 117/70
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
== END 2017-03-30 21:50 | disposition home or self-care (01) ==
LOC: M ED 18:51
DX: Z04.1 Encounter for examination and observation following transport accident (principal); S80.11XA Contusion of right lower leg, initial encounter; S13.4XXA Sprain of ligaments of cervical spine, initial encounter; V49.50XA Passenger injured in collision with unspecified motor vehicles in traffic accident, initial encounter; Y92.410 Unspecified street and highway as the place of occurrence of the external cause; Y93.89 Activity, other specified; Y99.8 Other external cause status; F17.210 Nicotine dependence, cigarettes, uncomplicated; Z79.01 Long term (current) use of anticoagulants; Z88.8 Allergy status to other drugs, medicaments and biological substances; Z88.0 Allergy status to penicillin; Z88.1 Allergy status to other antibiotic agents; Z88.2 Allergy status to sulfonamides

== ENCOUNTER 2017-04-13 04:48 | Emergency (ER) | payer OTHER ==
[~2017-04-13] VITALS: Ht 175.3 cm; Wt 72.7 kg
[~2017-04-13 04:48] MED LIST changes: +ALBU17IN; +ANORO; +OLAN5TAB; +REME15TA; +TRAZ1TAB14 PO
[2017-04-13 04:56] VITALS: BP 115/68
[2017-04-13] MEDS ORDERED: D 50CAP (05:06)
[2017-04-13] MEDS ORDERED: GABA-279 (05:06)
[2017-04-13] MEDS ORDERED: AZIT-12 PO (06:03)
[2017-04-13] MEDS ORDERED: AZITHROMYCIN 250 MG TAB PO ONE (06:15)
== END 2017-04-13 06:30 | disposition home or self-care (01) ==
LOC: M ED 04:48
DX: J02.0 Streptococcal pharyngitis (principal); Z79.82 Long term (current) use of aspirin; Z88.1 Allergy status to other antibiotic agents; Z88.0 Allergy status to penicillin; Z88.2 Allergy status to sulfonamides

== ENCOUNTER → 2017-05-31 | Outpatient (CLI) | payer OTHER ==
[~2017-05-31] MED LIST changes: +AZIT-12 PO; +D 50CAP; +GABA-279
--- NOTE | 2017-05-31 19:57 | ECGEPIP ---
Stationary ECG Study [facility] Test Date: 2017-05-31 Pat Name: NIVIA MUNOZ Department: Room: - Gender: F Scrap Stripper Hand: ISMAEL : 1975 Requested By: Gia DURHAM Order Number: [id number] Reading MD: Angel Osei Measurements Intervals [place] Rate: 72 P: 61 NM: 157 QRS: 74 QRSD: 90 T: 50 QT: 378 QTc: 414 Interpretive Statements SINUS RHYTHM POSSIBLE RIGHT VENTRICULAR CONDUCTION DELAY rSr' V1 & V2 new compared with 03/01/2016. Electronically Signed On 05-31-2017 19:56:58 EST by Angel Osei
== END ==
LOC: M EKG 11:04
PROVIDERS: ATTEND Registered Nurse Psychiatric/Mental Health
DX: R94.31 Abnormal electrocardiogram [ECG] [EKG] (principal)

== ENCOUNTER 2017-07-08 19:54 | Emergency (ER) | payer OTHER ==
[2017-07-08] MEDS: PERCOCET 5MG/325MG TAB PO (22:20)
== END 2017-07-08 22:32 | disposition home or self-care (01) ==
LOC: M ED 19:54
DX: S83.92XA Sprain of unspecified site of left knee, initial encounter (principal); X50.9XXA Other and unspecified overexertion or strenuous movements or postures, initial encounter; Y92.009 Unspecified place in unspecified non-institutional (private) residence as the place of occurrence of the external cause; M25.562 Pain in left knee; G89.29 Other chronic pain; M06.9 Rheumatoid arthritis, unspecified; F17.210 Nicotine dependence, cigarettes, uncomplicated; Z79.899 Other long term (current) drug therapy; Z88.8 Allergy status to other drugs, medicaments and biological substances; Z88.1 Allergy status to other antibiotic agents; Z88.0 Allergy status to penicillin; Z88.2 Allergy status to sulfonamides
CPT/HCPCS: 73564

== ENCOUNTER 2017-08-30 13:36 | Emergency (ER) | payer OTHER ==
[2017-08-30] MEDS: PERCOCET 5MG/325MG TAB PO (15:31)
== END 2017-08-30 17:11 | disposition home or self-care (01) ==
LOC: M ED 13:36
DX: M25.571 Pain in right ankle and joints of right foot (principal); J06.9 Acute upper respiratory infection, unspecified; Z79.899 Other long term (current) drug therapy; Z88.8 Allergy status to other drugs, medicaments and biological substances; Z88.1 Allergy status to other antibiotic agents; Z88.0 Allergy status to penicillin; Z88.2 Allergy status to sulfonamides; Z87.891 Personal history of nicotine dependence
CPT/HCPCS: 73610

== ENCOUNTER 2017-11-27 11:43 | Emergency (ER) | payer OTHER ==
[2017-11-27 13:28] LABS: BASO % 0.3 % (0.0-1.0); EOS # 0.1 10^3/uL (0.0-0.50); EOS % 0.7 % (0.0-3.0); HEMATOCRIT 33.6 % (36.0-47.0); HEMOGLOBIN 9.9 g/dl (12.0-15.5); IMMATURE GRANULOCYTE % 0.3 % (0-3.0); LYMPH # 1.4 10^3/uL (1.5-4.5); LYMPH % 11.4 % (24.0-44.0); MEAN CORPUSCULAR HGB CONC 29.5 g/dl (32.0-36.5); MEAN CORPUSCULAR VOLUME 74.5 fl (80.0-96.0); MONO # 0.6 10^3/uL (0.0-0.8); MONO % 5.2 % (0.0-5.0); NEUTROPHILS # 10.1 10^3/uL (1.8-7.7); NEUTROPHILS % 82.1 % (36.0-66.0); PLATELET COUNT, AUTOMATED 237 10^3/uL (150-450); RED BLOOD COUNT 4.51 10^6/uL (4.00-5.40); RED CELL DISTRIBUTION WIDTH 16.2 % (11.5-14.5); WHITE BLOOD COUNT 12.3 10^3/uL (4.0-10.0)
[2017-11-27 13:45] LABS: CONTROL LINE HCG INT CTR LINE PRESENT; HCG, SERUM QUALITATIVE NEGATIVE (NEGATIVE)
[2017-11-27 13:54] LABS: ANION GAP 7 MEQ/L (8-16); BLOOD UREA NITROGEN 17 MG/DL (7-18); CALCIUM LEVEL 8.5 MG/DL (8.5-10.1); CARBON DIOXIDE LEVEL 25 MEQ/L (21-32); CHLORIDE LEVEL 107 MEQ/L (98-107); CK-MB VALUE MASS < 1.0 NG/ML (<3.6); CPK CREATINE PHOSPHOKINASE 20 U/L (26-192); CREATININE FOR GFR 0.75 MG/DL (0.55-1.30); GLOMERULAR FILTRATION RATE > 60.0 (>60); GLUCOSE, FASTING 94 MG/DL (70-100); POTASSIUM SERUM 4.2 MEQ/L (3.5-5.1); SODIUM LEVEL 139 MEQ/L (136-145); TROPONIN I < 0.02 NG/ML (< 0.10)
[2017-11-27] MEDS: NS 1,000 ML IV (14:45)
[2017-11-27] MEDS ORDERED: ISOVUE-370 76% 100ML VIAL (Q9967) As Ordered (14:57)
[2017-11-27] MEDS: KETOROLAC 30 MG/ML VIAL (J1885) IV (15:00)
[2017-11-27 18:08] LABS: CK-MB VALUE MASS < 1.0 NG/ML (<3.6); CPK CREATINE PHOSPHOKINASE 20 U/L (26-192); TROPONIN I < 0.02 NG/ML (< 0.10)
== END 2017-11-27 18:42 | disposition home or self-care (01) ==
LOC: M ED 11:43
DX: R07.9 Chest pain, unspecified (principal); M25.569 Pain in unspecified knee; D64.9 Anemia, unspecified; J44.9 Chronic obstructive pulmonary disease, unspecified; G47.00 Insomnia, unspecified; F17.200 Nicotine dependence, unspecified, uncomplicated; Z83.6 Family history of other diseases of the respiratory system; Z83.3 Family history of diabetes mellitus; Z80.9 Family history of malignant neoplasm, unspecified; Z88.8 Allergy status to other drugs, medicaments and biological substances; Z88.0 Allergy status to penicillin; Z88.2 Allergy status to sulfonamides; Z79.899 Other long term (current) drug therapy
CPT/HCPCS: Q9967

== ENCOUNTER 2018-03-09 15:50 | Emergency (ER) | payer OTHER ==
[2018-03-09] MEDS ORDERED: methylPREDNISolone INJ 125 MG/2 ML VIAL (J2930) IV (19:30)
[2018-03-09] MEDS: diazePAM 5 MG TAB PO (20:15)
[2018-03-09] MEDS: methylPREDNISolone INJ 125 MG/2 ML VIAL (J2930) IM (20:15)
[2018-03-09] MEDS: OXYCODONE/APAP 5MG/325MG(BULK FOR ED) 1 TABLET PO (21:42)
== END 2018-03-09 21:52 | disposition home or self-care (01) ==
LOC: M ED 15:50
DX: M54.32 Sciatica, left side (principal); J45.909 Unspecified asthma, uncomplicated; J44.9 Chronic obstructive pulmonary disease, unspecified; F41.9 Anxiety disorder, unspecified; F32.9 Major depressive disorder, single episode, unspecified; D64.9 Anemia, unspecified; Z72.0 Tobacco use; Z79.899 Other long term (current) drug therapy; Z79.82 Long term (current) use of aspirin; Z88.0 Allergy status to penicillin; Z88.2 Allergy status to sulfonamides
CPT/HCPCS: J2930

== ENCOUNTER → 2018-04-03 | Outpatient (CLI) | payer OTHER ==
[2018-04-03 10:46] LABS: BASO % 0.5 % (0.0-1.0); EOS # 0.2 10^3/uL (0.0-0.50); EOS % 3.8 % (0.0-3.0); HEMATOCRIT 33.9 % (36.0-47.0); IMMATURE GRANULOCYTE % 0.2 % (0-3.0); LYMPH % 34.3 % (24.0-44.0); MEAN CORPUSCULAR HEMOGLOBIN 22.7 pg (27.0-33.0); MEAN CORPUSCULAR HGB CONC 29.5 g/dl (32.0-36.5); MEAN CORPUSCULAR VOLUME 76.9 fl (80.0-96.0); MONO # 0.4 10^3/uL (0.0-0.8); MONO % 7.3 % (0.0-5.0); NEUTROPHILS # 3.1 10^3/uL (1.8-7.7); NEUTROPHILS % 53.9 % (36.0-66.0); PLATELET COUNT, AUTOMATED 170 10^3/uL (150-450); RED BLOOD COUNT 4.41 10^6/uL (4.00-5.40); RED CELL DISTRIBUTION WIDTH 19.8 % (11.5-14.5); WHITE BLOOD COUNT 5.8 10^3/uL (4.0-10.0)
[2018-04-03 11:06] LABS: ESTIMATED AVERAGE GLUCOSE 111 MG/DL (60-110); HEMOGLOBIN A1c 5.5 %
[2018-04-03 11:22] LABS: ALBUMIN 3.9 GM/DL (3.2-5.2); ALBUMIN/GLOBULIN RATIO 1.26 (1.00-1.93); ALKALINE PHOSPHATASE 74 U/L (45-117); ALT/SGPT 17 U/L (12-78); ANION GAP 5 MEQ/L (8-16); AST/SGOT 7 U/L (7-37); BILIRUBIN,DIRECT 0.1 MG/DL (0.0-0.2); BILIRUBIN,TOTAL 0.6 MG/DL (0.2-1.0); BLOOD UREA NITROGEN 16 MG/DL (7-18); CALCIUM LEVEL 8.2 MG/DL (8.5-10.1); CARBON DIOXIDE LEVEL 27 MEQ/L (21-32); CHLORIDE LEVEL 109 MEQ/L (98-107); CHOLESTEROL LEVEL 128 MG/DL (<200); CHOLESTEROL RISK RATIO 3.555 (<5); CREATININE FOR GFR 0.73 MG/DL (0.55-1.30); GLOMERULAR FILTRATION RATE > 60.0 (>58); GLUCOSE, FASTING 96 MG/DL (70-100); HDL CHOLESTEROL 36 MG/DL (>40); LDL CHOLESTEROL 62 MG/DL (<100); NON-HDL-C 92 MG/DL; POTASSIUM SERUM 4.2 MEQ/L (3.5-5.1); SODIUM LEVEL 141 MEQ/L (136-145); TRIGLYCERIDES LEVEL 152 MG/DL (<150)
[2018-04-03 11:23] LABS: PROLACTIN 10.2 NG/ML; TOTAL 25(OH) VITAMIN D 25.6 NG/ML (30.0-100.0)
== END ==
LOC: M LAB 10:05
DX: F31.81 Bipolar II disorder (principal)
CPT/HCPCS: 82248

== ENCOUNTER 2018-11-15 18:37 | Emergency (ER) | payer OTHER ==
[~2018-11-15] VITALS: Ht 170.2 cm; Wt 75.0 kg
[~2018-11-15 18:37] MED LIST changes: +ARIP1TAB6 PO; +DICL50TAB; +EFFE37.5 PO; -EFFE37.527 PO; +EFFE75CA2 PO; -EFFE75CA75 PO; +GABA-1171; -GABA-279; +SUDA30TA8 PO; +TRAM50TA2; +TRAM50TA2 PO; -TRAZ-136 PO; +TRAZ-163 PO; +TYLE500T78 PO
[2018-11-15] MEDS ORDERED: IBUP-1022 PO (18:45)
[2018-11-15] MEDS ORDERED: ABIL300I (18:45)
--- NOTE | 2018-11-15 19:50 | REP ---
Nickel: Right knee pain. Technique: AP, lateral, bilateral oblique and sunrise views of the right knee. Comparison: 02/01/2018. Findings: Early advanced tricompartmental osteoarthritic degenerative changes include subchondral sclerosis, joint space obliteration, osteophytosis and chondrocalcinosis. No evidence for acute fracture dislocation. Suprapatellar effusion suggested. Impression: 1. Advanced tricompartmental osteoarthritic degenerative changes and suprapatellar effusion. 2. No acute fracture dislocation. Electronically Signed by Monster Hickman MD 11/15/2018 07:41 P
[2018-11-15] MEDS ORDERED: ACET650T15 PO (21:22)
[2018-11-15] MEDS ORDERED: TRAM50TA2 PO (21:22)
[2018-11-15] MEDS ORDERED: traMADol 50 MG TAB (BULK 4 TAB ED) PO ONE (21:30)
[2018-11-15 21:39] VITALS: BP 124/81
== END 2018-11-15 21:41 | disposition home or self-care (01) ==
LOC: M ED 18:37
DX: M25.461 Effusion, right knee (principal); M17.11 Unilateral primary osteoarthritis, right knee; J44.9 Chronic obstructive pulmonary disease, unspecified; D64.9 Anemia, unspecified; M25.50 Pain in unspecified joint; F17.210 Nicotine dependence, cigarettes, uncomplicated; Z88.0 Allergy status to penicillin; Z88.2 Allergy status to sulfonamides; Z88.6 Allergy status to analgesic agent; Z79.899 Other long term (current) drug therapy

== ENCOUNTER → 2018-11-27 | Outpatient (REF) | payer OTHER ==
[~2018-11-27] MED LIST changes: +ABIL300I; +ACET650T15 PO
[2018-11-27 17:11] LABS: C REACTIVE PROTEIN QUANTITATIV 0.42 MG/DL (0.00-0.30); RHEUMATOID FACTOR QUANT 10.4 IU/ML (<15.0)
[2018-11-27 17:24] LABS: BASO % 0.6 % (0.0-1.0); EOS # 0.1 10^3/uL (0.0-0.50); EOS % 1.3 % (0.0-3.0); HEMATOCRIT 33.2 % (36.0-47.0); HEMOGLOBIN 9.4 g/dl (12.0-15.5); LYMPH # 2.1 10^3/uL (1.5-4.5); LYMPH % 28.6 % (24.0-44.0); MEAN CORPUSCULAR HEMOGLOBIN 20.3 pg (27.0-33.0); MEAN CORPUSCULAR HGB CONC 28.3 g/dl (32.0-36.5); MEAN CORPUSCULAR VOLUME 71.6 fl (80.0-96.0); MONO # 0.4 10^3/uL (0.0-0.8); MONO % 5.6 % (0.0-5.0); NEUTROPHILS # 4.6 10^3/uL (1.8-7.7); NEUTROPHILS % 63.5 % (36.0-66.0); PLATELET COUNT, AUTOMATED 216 10^3/uL (150-450); RED BLOOD COUNT 4.64 10^6/uL (4.00-5.40); WHITE BLOOD COUNT 7.2 10^3/uL (4.0-10.0)
[2018-11-27 18:06] LABS: ERYTHROCYTE SEDIMENTATION RATE 22 mm/hr (0-20)
[2018-11-30 00:08] LABS: ANTINUCLEAR ANTIBODIES DIRECT Negative (Negative); Lyme Disease IgG/IgM Antibodie <0.91 ISR (0.00-0.90); Lyme Disease IgM Ab Quantitati <0.80 index (0.00-0.79)
== END ==
LOC: M LABDRAW1 16:07
PROVIDERS: ATTEND Orthopaedic Surgery
DX: M17.12 Unilateral primary osteoarthritis, left knee (principal)

== ENCOUNTER → 2019-02-04 | Outpatient (REF) | payer OTHER, MEDICAID ==
[2019-02-04 18:49] LABS: APPEARANCE, URINE CLOUDY (CLEAR); BACTERIA, URINE AUTO 2+ (NEGATIVE); BILIRUBIN, URINE AUTO NEGATIVE (NEGATIVE); BLOOD, URINE BLOOD 1+ (NEGATIVE); COLOR, URINE YELLOW (YELLOW); GLUCOSE, URINE (UA) AUTO NEGATIVE (NEGATIVE); KETONE, URINE AUTO TRACE mg/dL (NEGATIVE); LEUKOCYTE ESTERASE, URINE AUTO 3+ (NEGATIVE); NITRITE, URINE AUTO POSITIVE (NEGATIVE); PROTEIN, URINE AUTO 1+ mg/dL (NEGATIVE); RBC, URINE AUTO 7 /HPF (0-3); SQUAMOUS EPITHELIAL CELL UR AU 16 /HPF (0-6); WBC, URINE AUTO TNTC /HPF (0-3)
[2019-02-05 15:24] LABS: CHLAMYDIA DNA AMPLIFICATION NEGATIVE (NEGATIVE); GC DNA AMPLIFICATION NEGATIVE (NEGATIVE)
== END ==
LOC: M LAB REF 17:56
PROVIDERS: ATTEND Nurse Practitioner Adult Health
DX: Z01.818 Encounter for other preprocedural examination (principal); N39.0 Urinary tract infection, site not specified

== ENCOUNTER 2019-04-13 18:55 | Emergency (ER) | payer MEDICAID, OTHER ==
[~2019-04-13] VITALS: Ht 175.3 cm; Wt 66.1 kg
[2019-04-13] MEDS ORDERED: TRAZ10TA PO (19:10)
[2019-04-13] MEDS ORDERED: ULTR50TA8 PO (20:14)
[2019-04-13] MEDS ORDERED: traMADol 50 MG TAB PO ONE (20:15)
[2019-04-13 20:27] VITALS: BP 102/58
--- NOTE | 2019-04-14 11:35 | REP ---
RIGHT KNEE, FOUR VIEWS: Four views of right knee performed. No acute fracture or dislocation is seen. Total knee prosthesis is in good position with no adjacent abnormal lucency at the interphase between the bone and prosthetic components. IMPRESSION: No acute fracture or dislocation. Electronically Signed by Jose Lawrence MD 04/14/2019 12:36 P
== END 2019-04-13 20:28 | disposition home or self-care (01) ==
LOC: M ED 18:55
DX: S83.91XA Sprain of unspecified site of right knee, initial encounter (principal); W18.43XA Slipping, tripping and stumbling without falling due to stepping from one level to another, initial encounter; Y92.89 Other specified places as the place of occurrence of the external cause; Z96.651 Presence of right artificial knee joint; Z88.0 Allergy status to penicillin; Z88.8 Allergy status to other drugs, medicaments and biological substances; Z88.2 Allergy status to sulfonamides

== ENCOUNTER → 2019-05-07 | Outpatient (REF) | payer OTHER, MEDICAID ==
[~2019-05-07] MED LIST changes: +TRAZ10TA PO; +ULTR50TA8 PO
[2019-05-07 20:27] LABS: PERCENT SATURATION 2.8 % (13.2-45.0)
[2019-05-07 20:35] LABS: FOLATE 6.1 NG/ML (>5.4)
== END ==
LOC: M LAB REF 18:51
PROVIDERS: ATTEND Nurse Practitioner Adult Health
DX: D64.9 Anemia, unspecified (principal)

== ENCOUNTER → 2019-05-10 | Outpatient (CLI) | payer OTHER, MEDICAID ==
[2019-05-10 16:59] LABS: FERRITIN 5 NG/ML (8-252)
[2019-05-10 17:14] LABS: VITAMIN B12 LEVEL 320 PG/ML (247-911)
[2019-05-10 17:32] LABS: BASO % 0.5 % (0.0-1.0); EOS # 0.1 10^3/uL (0.0-0.5); EOS % 1.7 % (0.0-3.0); HEMATOCRIT 33.2 % (36.0-47.0); HEMOGLOBIN 9.4 g/dl (12.0-15.5); LYMPH # 2.2 10^3/uL (1.5-5.0); LYMPH % 38.7 % (24.0-44.0); MEAN CORPUSCULAR HEMOGLOBIN 20.8 pg (27.0-33.0); MEAN CORPUSCULAR HGB CONC 28.3 g/dl (32.0-36.5); MEAN CORPUSCULAR VOLUME 73.3 fl (80.0-96.0); MONO # 0.4 10^3/uL (0.0-0.8); MONO % 7.4 % (0.0-5.0); NEUTROPHILS % 51.4 % (36.0-66.0); PLATELET COUNT, AUTOMATED 160 10^3/uL (150-450); RED BLOOD COUNT 4.53 10^6/uL (4.00-5.40); WHITE BLOOD COUNT 5.8 10^3/uL (4.0-10.0)
== END ==
LOC: M WUC 14:37
PROVIDERS: ATTEND Nurse Practitioner Adult Health
DX: D64.9 Anemia, unspecified (principal)

== ENCOUNTER 2019-06-13 12:11 | Emergency (ER) | payer MEDICAID, OTHER ==
[~2019-06-13] VITALS: Ht 175.3 cm; Wt 62.3 kg
[~2019-06-13 12:11] MED LIST changes: +FLUO10CA15 PO; -FLUO10CA8 PO
--- NOTE | 2019-06-13 12:50 | REP ---
Clinical: Acute chest pain . Comparison: 11/27/2017 . Findings: The mediastinum and cardiac silhouette are stable and within normal limits for portable technique. The lung [place] are clear without acute consolidation, effusion, or pneumothorax. Skeletal structures are intact. Impression: No acute cardiopulmonary process appreciated. Electronically Signed by Monster Hickman MD 06/13/2019 12:42 P
[2019-06-13] MEDS ORDERED: PANTOPRAZOLE 40MG INJ (PROTONIX) (C9113) IV ONE (13:00)
[2019-06-13 13:04] LABS: BASO % 0.5 % (0.0-1.0); EOS # 0.2 10^3/uL (0.0-0.5); EOS % 2.4 % (0.0-3.0); HEMATOCRIT 33.3 % (36.0-47.0); HEMOGLOBIN 9.7 g/dl (12.0-15.5); LYMPH # 2.2 10^3/uL (1.5-5.0); LYMPH % 28.8 % (24.0-44.0); MEAN CORPUSCULAR HGB CONC 29.1 g/dl (32.0-36.5); MEAN CORPUSCULAR VOLUME 72.2 fl (80.0-96.0); MONO # 0.6 10^3/uL (0.0-0.8); MONO % 7.4 % (0.0-5.0); NEUTROPHILS # 4.6 10^3/uL (1.5-8.5); NEUTROPHILS % 60.6 % (36.0-66.0); PLATELET COUNT, AUTOMATED 187 10^3/uL (150-450); RED BLOOD COUNT 4.61 10^6/uL (4.00-5.40); WHITE BLOOD COUNT 7.6 10^3/uL (4.0-10.0)
[2019-06-13 13:55] LABS: ALBUMIN 3.6 GM/DL (3.2-5.2); ALT/SGPT 13 U/L (12-78); BILIRUBIN,DIRECT < 0.1 MG/DL (0.0-0.2); BILIRUBIN,TOTAL 0.4 MG/DL (0.2-1.0); BLOOD UREA NITROGEN 8 MG/DL (7-18); CALCIUM LEVEL 8.6 MG/DL (8.5-10.1); CARBON DIOXIDE LEVEL 20 MEQ/L (21-32); CHLORIDE LEVEL 112 MEQ/L (98-107); CK-MB VALUE MASS < 1.0 NG/ML (<3.6); CPK CREATINE PHOSPHOKINASE 46 U/L (26-192); CREATININE FOR GFR 0.63 MG/DL (0.55-1.30); GLOMERULAR FILTRATION RATE > 60.0 (>58); GLUCOSE, FASTING 85 MG/DL (70-100); LIPASE 87 U/L (73-393); MB/CK RELATIVE INDEX 2.17 (< OR =4); POTASSIUM SERUM 4.4 MEQ/L (3.5-5.1); SODIUM LEVEL 141 MEQ/L (136-145); TOTAL PROTEIN 6.9 GM/DL (6.4-8.2); TROPONIN I < 0.02 NG/ML (< 0.10)
[2019-06-13] MEDS ORDERED: IPRATROPIUM 0.5MG/ALBUTEROL 2.5MG INH SOL UD 3ML (DUONEB)(J7620) NEB ONE (14:15)
[2019-06-13 16:00] VITALS: BP 88/54
--- NOTE | 2019-06-13 16:12 | REP ---
RIGHT UPPER QUADRANT ULTRASOUND: Real-time sonographic evaluation of the right upper quadrant is performed. The gallbladder demonstrates no evidence of intraluminal sludge or calculi, wall thickening or pericholecystic fluid. There is no intrahepatic or extrahepatic biliary dilatation, common bile duct measuring 4 mm. The liver and pancreas demonstrate no gross abnormality. Pancreas is not well seen due to overlying bowel gas. Right kidney demonstrates no hydronephrosis with normal size 11.8 cm in length. IMPRESSION: Essentially negative right upper quadrant ultrasound. Electronically Signed by Jose Lawrence MD 06/13/2019 04:35 P
--- NOTE | 2019-06-13 21:10 | ECGEPIP ---
[facility] - ED Test Date: 2019-06-13 Pat Name: NIVIA MUNOZ Department: Room: - Gender: Female Nursing Education Consultant: sonja : 1975 Requested By: Rick Mcpherson Order Number: [id number] Reading MD: Rick Argueta Measurements Intervals [place] Rate: 63 P: 9 DE: 152 QRS: 68 QRSD: 82 T: 47 QT: 415 QTc: 426 Interpretive Statements SINUS RHYTHM INCOMPLETE RIGHT BUNDLE BRANCH BLOCK SIMILAR TO 11/27/17 Electronically Signed on 06-13-2019 21:10:02 EST by Rick Argueta
--- NOTE | 2019-06-16 08:39 | ECGEPIP ---
[facility] - ED Test Date: 2019-06-13 Pat Name: NIVIA MUNOZ Department: Room: - Gender: Female Stator Winder: : 1975 Requested By: Rick Mcpherson Order Number: [id number] Reading MD: Rick Argueta Measurements Intervals [place] Rate: 59 P: -48 NM: 138 QRS: 70 QRSD: 84 T: 51 QT: 412 QTc: 410 Interpretive Statements SINUS BRADYCARDIA INCOMPLETE RIGHT BUNDLE BRANCH BLOCK SIMILAR TO 11/27/17 Electronically Signed on 06-16-2019 8:38:58 EST by Rick Argueta
== END 2019-06-13 16:00 | disposition left against medical advice (07) ==
LOC: M ED 12:11
DX: R10.13 Epigastric pain (principal); J44.9 Chronic obstructive pulmonary disease, unspecified; I45.10 Unspecified right bundle-branch block; R00.1 Bradycardia, unspecified; M06.9 Rheumatoid arthritis, unspecified; F32.9 Major depressive disorder, single episode, unspecified; D50.9 Iron deficiency anemia, unspecified; F41.9 Anxiety disorder, unspecified; F17.210 Nicotine dependence, cigarettes, uncomplicated; Z88.0 Allergy status to penicillin; Z88.2 Allergy status to sulfonamides; Z88.6 Allergy status to analgesic agent; Z79.899 Other long term (current) drug therapy
CPT/HCPCS: 71045; 76705; 80048; 80076; 82550; 82553; 83690; 84443; 85025; 93005; 93041; 94640; 94760; 96374; 99285; C9113

== ENCOUNTER 2019-08-21 05:49 | Inpatient (IN) | payer OTHER ==
[2019-08-21] VITALS (15 sets, daily range): BP systolic 96–116; BP diastolic 56–72
[~2019-08-21] VITALS: Ht 175.3 cm; Wt 63.9 kg
[~2019-08-21 05:49] MED LIST changes: -FLUO20CA19 PO; +FLUO20CA22 PO; -TRAZ-163 PO; +TRAZ-257 PO; -TRAZ10TA PO; +TRAZ1TAB12 PO
[2019-08-21] MEDS ORDERED: IPRATROPIUM 0.5MG/ALBUTEROL 2.5MG INH SOL UD 3ML (DUONEB)(J7620) NEB ONE (07:00)
[2019-08-21 07:22] LABS: BASO % 0.4 % (0.0-1.0); EOS # 0.4 10^3/uL (0.0-0.5); EOS % 4.4 % (0.0-3.0); HEMATOCRIT 22.4 % (36.0-47.0); LYMPH # 1.1 10^3/uL (1.5-5.0); LYMPH % 13.5 % (24.0-44.0); MEAN CORPUSCULAR HEMOGLOBIN 21.3 pg (27.0-33.0); MEAN CORPUSCULAR HGB CONC 29.5 g/dl (32.0-36.5); MEAN CORPUSCULAR VOLUME 72.3 fl (80.0-96.0); MONO # 0.5 10^3/uL (0.0-0.8); MONO % 5.8 % (0.0-5.0); NEUTROPHILS # 6.4 10^3/uL (1.5-8.5); NEUTROPHILS % 75.5 % (36.0-66.0); PLATELET COUNT, AUTOMATED 177 10^3/uL (150-450); WHITE BLOOD COUNT 8.4 10^3/uL (4.0-10.0)
[2019-08-21 07:23] LABS: HEMOGLOBIN 6.6 g/dl (12.0-15.5)
[2019-08-21 07:42] LABS: BLOOD UREA NITROGEN 14 MG/DL (7-18); CALCIUM LEVEL 8.1 MG/DL (8.5-10.1); CARBON DIOXIDE LEVEL 25 MEQ/L (21-32); CHLORIDE LEVEL 109 MEQ/L (98-107); CK-MB VALUE MASS < 1.0 NG/ML (<3.6); CPK CREATINE PHOSPHOKINASE 26 U/L (26-192); CREATININE FOR GFR 0.73 MG/DL (0.55-1.30); GLOMERULAR FILTRATION RATE > 60.0 (>58); GLUCOSE, FASTING 94 MG/DL (70-100); MB/CK RELATIVE INDEX 3.85 (< OR =4); POTASSIUM SERUM 3.1 MEQ/L (3.5-5.1); SODIUM LEVEL 141 MEQ/L (136-145); TROPONIN I < 0.02 NG/ML (< 0.10)
--- NOTE | 2019-08-21 08:13 | REP ---
Portable chest x-ray: Single view. History: Chest pain. Comparison chest x-ray: June 13, 2019. Findings: Monitoring electrodes overlie the chest. Lungs are well inflated and free of infiltrate. There is a skin fold along the right lateral chest wall. The pleural angles are sharp. Cardiomediastinal silhouette is unremarkable. Pulmonary vasculature is not increased. Impression: No active disease. Electronically Signed by Arash Baca MD 08/21/2019 08:05 A
[2019-08-21] MEDS ORDERED: PANTOPRAZOLE 40MG INJ (PROTONIX) (C9113) IV ONE (08:15)
[2019-08-21] MEDS ORDERED: IBUP200T45 PO (08:33)
[2019-08-21] MEDS ORDERED: VENTAER INH (08:33)
[2019-08-21] MEDS ORDERED: MELA3TAB63 PO (08:33)
[2019-08-21] MEDS ORDERED: POTASSIUM CHLORIDE 10 MEQ SR TABLET PO ONE (09:00)
[2019-08-21 12:29] LABS: FERRITIN 7 NG/ML (8-252); IRON (FE) 11 UG/DL (50-170); PERCENT SATURATION 3.2 % (13.2-45.0); TOTAL IRON BINDING CAPACITY 344 UG/DL (250-450)
[2019-08-21] MEDS ORDERED: IPRATROPIUM 0.5MG/ALBUTEROL 2.5MG INH SOL UD 3ML (DUONEB)(J7620) NEB PRN (14:00)
--- NOTE | 2019-08-21 14:35 | HPEPDOC ---
[facility] Medical History & Physical Date of Admission Aug 21, 2019 Date of Service: Aug 21, 2019 Attending Physician: ZULEIMA JAIME MD History and Physical CHIEF COMPLAINT: Back pain HISTORY OF PRESENT ILLNESS: 43-year-old female with past medical history of iron deficiency anemia, noncompliant with iron supplementation, arthritis, asthma, anxiety/depression presents from home with back pain. Patient has had mid back pain for the past 4-6 weeks, presented to the emergency department a few weeks a go and left AGAINST MEDICAL ADVICE at the time as she believed that no one was helping her or taking her seriously. Patient reports radiation of mid back pain to left thorax/rib cage, left upper quadrant of the abdomen, sharp, intermittent, persistent over the past 2 months. She appears to be in moderate distress when describing her pain and during examination, although when speaking or with her focus redirected she appears more comfortable. She has no other associated symptoms, denies any shortness of breath, nausea, vomiting, abdominal pain, diarrhea or constipation. She denies any melena or hematemesis. In the ED, she is found to have significantly low hemoglobin, ordered to receive 2 units of packed red blood cells. Patient is adamant that she does not take any NSAIDs and only takes Tylenol for her pain. 10 point review of system is negative except for above PAST MEDICAL HISTORY: 1. Arthritis. 2. Anxiety/depression. 3. Asthma/COPD PAST SURGICAL HISTORY: 1. Right knee replacement. SOCIAL HISTORY: Smokes one to 2 packs per day Denies alcohol use. Smokes marijuana FAMILY HISTORY: Father with heart disease ALLERGIES: Please see below. HOME MEDICATIONS: Please see below. PHYSICAL EXAMINATION: VITAL SIGNS: Please see below. GENERAL: Mild distress HEENT: Normocephalic, atraumatic, moist mucous membranes NECK: Supple CARDIOVASCULAR EXAMINATION: S1, S2, no murmurs RESPIRATORY EXAMINATION: Clear to auscultation, no wheezing, moderate to severe tenderness to palpation of mid/low back with radiation to left thorax and left upper quadrant ABDOMINAL EXAMINATION: Soft, moderate left upper quadrant tenderness to palpation, nondistended, positive bowel sounds EXTREMITIES: Range of motion intact SKIN: No rash NEUROLOGICAL EXAMINATION: Alert and oriented 3, no focal deficits PSYCHIATRIC EXAMINATION: Calm and cooperative LABORATORY DATA: See below. IMAGING: Chest x-ray without acute pathology MICROBIOLOGY: Please see below. ASSESSMENT: 43-year-old female with past medical history of iron deficiency anemia, asthma, anxiety/depression, and arthritis presents with severe anemia and back pain. PLAN: 1. Severe anemia. Order to receive 2 units of packed red blood cells by the emergency department, Stool OB pending, likely due to noncompliance, significantly iron deficient, will provide IV iron infusion of Venofer 100 mg daily while hospitalized, followed by outpatient oral supplementation. Denies NSAID use, melena or hematemesis, will monitor. 2. Back pain. With radiation to chest/upper abdomen, vague distribution, unknown etiology given presentation and physical examination, further assessment with CT chest, abdomen and pelvis, pain control with Tylenol and Percocet as needed. 3. Asthma. Continue DuoNeb as needed DVT prophylaxis: Heparin subcutaneous GI prophylaxis: Not needed Vital Signs Vital Signs Date Time Temp Pulse Resp B/P (MAP) Pulse Ox O2 Delivery O2 Flow Rate FiO2 08/21/19 13:40 98.3 67 18 109/67 100 Room Air 08/21/19 12:40 100.0 Laboratory Data Labs 24H Laboratory Tests 2 08/21/19 06:51: Immature Granulocyte % (Auto) 0.4, Neutrophils (%) (Auto) 75.5H, Lymphocytes (%) (Auto) 13.5L, Monocytes (%) (Auto) 5.8H, Eosinophils (%) (Auto) 4.4H, Basophils (%) (Auto) 0.4, Neutrophils # (Auto) 6.4, Lymphocytes # (Auto) 1.1L, Monocytes # (Auto) 0.5, Eosinophils # (Auto) 0.4, Basophils # (Auto) 0.0, Nucleated Red Blood Cells % (auto) 0.0 08/21/19 07:07: Anion Gap 7L, Glomerular Filtration Rate > 60.0, Calcium Level 8.1L, Iron Level 11L, Total Iron Binding Capacity 344, Transferrin % Saturation 3.2L, Ferritin 7L, Total Creatine Kinase 26, Creatine Kinase MB < 1.0, Creatine Kinase MB Relative Index 3.85, Troponin I < 0.02 CBC/BMP Laboratory Tests 08/21/19 06:51 08/21/19 07:07 Home Medications Scheduled PRN Albuterol Sulfate (Ventolin Hfa) 18 Gm Hfa.aer.ad, 2 PUFF INH Q4-6HP PRN for wheezing Ibuprofen (Ibu-200) 200 Mg Tablet, 200 MG PO Q6H PRN for PAIN Melatonin (Melatonin) 3 Mg Tablet, 3 MG PO QHS PRN for SLEEP Allergies Coded Allergies: Sulfa (Sulfonamide Antibiotics) (Verified Allergy, Unknown, 08/21/19) aspirin (Verified Allergy, Unknown, 08/21/19) Penicillins (Verified Adverse Reaction, Unknown, throat swells, hives, 08/21/19) A-FIB/CHADSVASC A-FIB History Current/History of A-Fib/PAF?: No ZULEIMA JAIME MD Aug 21, 2019 14:35
--- NOTE | 2019-08-21 14:57 | REP ---
CT chest without contrast: History: Chest, back and abdomen pain. Comparison CT study of the chest is from November 27, 2017. CT findings: Preliminary digital artificial log machine operator radiograph is unremarkable. There is a small left pleural effusion. There is no evidence of pericardial or right pleural effusion. No hilar or mediastinal mass or adenopathy is observed. There is minimal plate-like atelectasis in the left lower lobe. No infiltrate is seen. Lung [place] are clear. No bony abnormalities seen. Impression: Small left pleural effusion. Otherwise negative. Electronically Signed by Arash Baca MD 08/21/2019 05:09 P
[2019-08-21] MEDS ORDERED: IRON SUCROSE 100MG 5ML VIAL (J1756 PER 1MG) IV SCH (15:00)
[2019-08-21] MEDS: HEPARIN SOD (PORCINE) 5000 UNITS/ML VIAL (J1644 PER 1000UNITS) SQ SCH ×2 (15:08→21:43)
[2019-08-21] MEDS: ACETAMINOPHEN TAB 650MG DOSE (2X325MG) PO PRN (15:08)
--- NOTE | 2019-08-21 15:17 | REP ---
CT abdomen and pelvis without IV or oral contrast: History: Chest, back and abdomen pain. Findings: Small left pleural effusion is noted. The liver is normal in size, homogeneous in texture. The spleen is mildly enlarged. It measures 13.6 cm in greatest transverse dimension. No focal splenic lesion is seen. No pancreatic abnormalities observed. No abnormalities noted in the gallbladder. No adrenal lesion is seen. The kidneys are morphologically intact. There are several small periaortic lymph nodes none pathologically enlarged. There are some scattered normal-sized mesenteric lymph nodes as well in the abdomen. Small and large bowel loops are unremarkable. Tubal ligation clamps are noted the pelvis. No uterine or ovarian abnormality is seen. Urinary bladder is intact. No abdominal wall defect is seen. Bone window settings show no bony destructive lesion. Impression: Small left pleural effusion. Scattered mesenteric and periaortic lymph nodes, none pathologically enlarged. No acute abdominal or pelvic abnormality. Tubal ligation clamps. Mildly enlarged spleen. Electronically Signed by Arash Baca MD 08/21/2019 05:09 P
[2019-08-21] MEDS: IRON SUCROSE 100 MG in NS 100 ML OVER 1 HR IV SCH (15:56)
[2019-08-21] MEDS ORDERED: NICOTINE 21MG/24HR 1 EA TRANSDERMAL TD SCH (20:00)
[2019-08-21] MEDS: PERCOCET 5MG/325MG TAB PO PRN (20:57)
[2019-08-22] MEDS: ACETAMINOPHEN TAB 650MG DOSE (2X325MG) PO PRN (04:42)
[2019-08-22 06:00] VITALS: BP 90/54
[2019-08-22] MEDS: HEPARIN SOD (PORCINE) 5000 UNITS/ML VIAL (J1644 PER 1000UNITS) SQ SCH ×3 (06:05→21:04)
[2019-08-22 06:39] LABS: MEAN CORPUSCULAR HEMOGLOBIN 22.9 pg (27.0-33.0); MEAN CORPUSCULAR HGB CONC 30.3 g/dl (32.0-36.5); MEAN CORPUSCULAR VOLUME 75.7 fl (80.0-96.0); PLATELET COUNT, AUTOMATED 164 10^3/uL (150-450); RED BLOOD COUNT 4.36 10^6/uL (4.00-5.40)
--- NOTE | 2019-08-22 06:51 | ECGEPIP ---
[facility] - ED Test Date: 2019-08-21 Pat Name: NIVIA MUNOZ Department: Room: - Gender: Female Ross Carrier Driver: herberth : 1975 Requested By: CATIA LONDONO PA-C. Order Number: [id number] Reading MD: Rick Argueta Measurements Intervals [place] Rate: 69 P: 31 VA: 148 QRS: 65 QRSD: 91 T: 45 QT: 364 QTc: 392 Interpretive Statements SINUS RHYTHM WITH SINUS ARRHYTHMIA INCOMPLETE RIGHT BUNDLE BRANCH BLOCK SIMILAR TO 06/13/19 Electronically Signed on 08-22-2019 6:50:56 EST by Rick Argueta
[2019-08-22] MEDS ORDERED: NS 500 ML IV ONE (07:00)
[2019-08-22 07:10] LABS: ALBUMIN 2.8 GM/DL (3.2-5.2); ALT/SGPT 12 U/L (12-78); BILIRUBIN,TOTAL 0.7 MG/DL (0.2-1.0); BLOOD UREA NITROGEN 6 MG/DL (7-18); CARBON DIOXIDE LEVEL 24 MEQ/L (21-32); CHLORIDE LEVEL 112 MEQ/L (98-107); CREATININE FOR GFR 0.64 MG/DL (0.55-1.30); GLOMERULAR FILTRATION RATE > 60.0 (>58); GLUCOSE, FASTING 89 MG/DL (70-100); MAGNESIUM LEVEL 2.3 MG/DL (1.8-2.4); POTASSIUM SERUM 3.6 MEQ/L (3.5-5.1); SODIUM LEVEL 139 MEQ/L (136-145); TOTAL PROTEIN 5.8 GM/DL (6.4-8.2)
[2019-08-22] MEDS: NICOTINE 21MG/24HR 1 EA TRANSDERMAL TD SCH (08:18)
[2019-08-22] MEDS: PERCOCET 5MG/325MG TAB PO PRN ×3 (08:18→21:03)
[2019-08-22] MEDS ORDERED: POTASSIUM CHLORIDE 10 MEQ SR TABLET PO ONE (09:30)
[2019-08-22] MEDS ORDERED: MIRALAX *UNIT DOSE* 17GM PACKET PO PRN (11:15)
[2019-08-22 14:00] VITALS: BP 115/60
[2019-08-22] MEDS: IRON SUCROSE 100 MG in NS 100 ML OVER 1 HR IV SCH (14:19)
--- NOTE | 2019-08-22 21:09 | IPNPDOC ---
Date Seen The patient was seen on 08/22/19. Progress Note SUBJECTIVE: 43-year-old female with past medical history of iron deficiency anemia, noncompliant with iron supplementation, arthritis, asthma, anxiety/depression presents from home with back pain. Patient has had mid back pain for the past 4-6 weeks, presented to the emergency department a few weeks ago and left AGAINST MEDICAL ADVICE at the time as she believed that no one was helping her or taking her seriously. Patient reports radiation of mid back pain to left thorax/rib cage, left upper quadrant of the abdomen, sharp, intermittent, persistent over the past 2 months. She appears to be in moderate distress when describing her pain and during examination, although when speaking or with her focus redirected she appears more comfortable. She has no other associated symptoms, denies any shortness of breath, nausea, vomiting, abdominal pain, diarrhea or constipation. She denies any melena or hematemesis. In the ED, she is found to have significantly low hemoglobin, ordered to receive 2 units of packed red blood cells. Patient is adamant that she does not take any NSAIDs and only takes Tylenol for her pain. 08/22/19 No acute events overnight, continues to have L sided pleuritic back/chest pain, no other complaints, tolerating diet. 10 point review of system is negative except for above PHYSICAL EXAMINATION: VITAL SIGNS: Please see below. GENERAL: No distress HEENT: Normocephalic, atraumatic, moist mucous membranes NECK: Supple CARDIOVASCULAR EXAMINATION: S1, S2, no murmurs RESPIRATORY EXAMINATION: Clear to auscultation, no wheezing, reproducible ABDOMINAL EXAMINATION: Soft, moderate left upper quadrant tenderness to palpation, nondistended, positive bowel sounds EXTREMITIES: Range of motion intact SKIN: No rash NEUROLOGICAL EXAMINATION: Alert and oriented 3, no focal deficits PSYCHIATRIC EXAMINATION: Calm and cooperative LABORATORY DATA: See below. IMAGING: Chest x-ray without acute pathology MICROBIOLOGY: Please see below. ASSESSMENT: 43-year-old female with past medical history of iron deficiency anemia, asthma, anxiety/depression, and arthritis presents with severe anemia and back pain. PLAN: 1. Severe anemia. s/p 2 units PRBC yesterday, Stool OB pending, no clinical signs of bleeding, iron deficiency, continue IV iron infusion of Venofer 100 mg daily. 2. Back pain. radiating to L chest, pleuritic, reproducible, CT showing small L pleural effusion & abdominal lymphadenopathy. 3. Asthma. Continue DuoNeb as needed DVT prophylaxis: Heparin subcutaneous GI prophylaxis: Not needed VS, I&O, 24H, Fishbone Vital Signs/I&O Vital Signs Date Time Temp Pulse Resp B/P (MAP) Pulse Ox O2 Delivery O2 Flow Rate FiO2 08/22/19 14:49 16 Room Air 08/22/19 14:00 97.2 72 115/60 (78) 100 08/21/19 15:05 100.0 I&O- Last 24 Hours up to 6 AM 08/22/19 06:00 Intake Total 3770 ml Output Total 2675 ml Balance 1095 ml Laboratory Data 24H LABS Laboratory Tests 2 08/22/19 05:34: Nucleated Red Blood Cells % (auto) 0.0, Anion Gap 3L, Glomerular Filtration Rate > 60.0, Calcium Level 8.0L, Magnesium Level 2.3, Total Bilirubin 0.7, Aspartate Amino Transf (AST/SGOT) 8, Alanine Aminotransferase (ALT/SGPT) 12, Alkaline Phosphatase 51, Total Protein 5.8L, Albumin 2.8L, Albumin/Globulin Ratio 0.93L 08/22/19 11:12: Methicillin-Resist S.aureus DNA PCR NOT DETECTED CBC/BMP Laboratory Tests 08/22/19 05:34 ZULEIMA JAIME MD Aug 22, 2019 21:09
[2019-08-22 22:00] VITALS: BP 115/68
[2019-08-23] MEDS: ACETAMINOPHEN TAB 650MG DOSE (2X325MG) PO PRN (05:24)
[2019-08-23] MEDS: HEPARIN SOD (PORCINE) 5000 UNITS/ML VIAL (J1644 PER 1000UNITS) SQ SCH (05:24)
[2019-08-23 06:00] VITALS: BP 92/56
[2019-08-23 06:40] LABS: HEMATOCRIT 33.1 % (36.0-47.0); HEMOGLOBIN 10.2 g/dl (12.0-15.5); MEAN CORPUSCULAR HEMOGLOBIN 23.3 pg (27.0-33.0); MEAN CORPUSCULAR HGB CONC 30.8 g/dl (32.0-36.5); MEAN CORPUSCULAR VOLUME 75.6 fl (80.0-96.0); PLATELET COUNT, AUTOMATED 174 10^3/uL (150-450); RED BLOOD COUNT 4.38 10^6/uL (4.00-5.40); WHITE BLOOD COUNT 6.6 10^3/uL (4.0-10.0)
[2019-08-23 07:03] LABS: BLOOD UREA NITROGEN 6 MG/DL (7-18); CALCIUM LEVEL 8.2 MG/DL (8.5-10.1); CARBON DIOXIDE LEVEL 24 MEQ/L (21-32); CHLORIDE LEVEL 111 MEQ/L (98-107); GLOMERULAR FILTRATION RATE > 60.0 (>58); GLUCOSE, FASTING 78 MG/DL (70-100); POTASSIUM SERUM 3.7 MEQ/L (3.5-5.1); SODIUM LEVEL 141 MEQ/L (136-145)
[2019-08-23] MEDS ORDERED: POTASSIUM CHLORIDE 10 MEQ SR TABLET PO ONE (08:30)
[2019-08-23] MEDS: NICOTINE 21MG/24HR 1 EA TRANSDERMAL TD SCH (09:59)
[2019-08-23] MEDS ORDERED: NICO21PAT TD (11:25)
[2019-08-23] MEDS ORDERED: FERR325T3 PO (11:25)
--- NOTE | 2019-08-23 17:49 | DS.PDOC ---
Discharge Summary General Date of Admission Aug 21, 2019 at 08:45 Date of Discharge 08/23/19 Attending Physician: ZULEIMA JAIME MD Discharge Summary PROCEDURES PERFORMED DURING STAY: None. ADMITTING DIAGNOSES: 1. Pleuritic back/chest pain, lymphadenopathy, pleural effusion. DISCHARGE DIAGNOSES: 1. Pleuritic back/chest pain, lymphadenopathy, pleural effusion. COMPLICATIONS/CHIEF COMPLAINT: Anemia,Copd,Melena. HISTORY OF PRESENT ILLNESS: 43-year-old female with past medical history of iron deficiency anemia, anxiety and depression, was admitted for pleuritic back/chest pain. CT showed small left pleural effusion along with abdominal lymphadenopathy. Patient was monitored with improvement in pain, clinically stable. Patient received packed red blood cells in the ED for severe anemia. No signs of bleeding, treated with iron infusions. Patient is clinically and hemodynamically stable for discharge and outpatient follow-up at this time. Patient is strongly advised to follow-up with hematology oncology for severe iron deficiency anemia requiring iron infusions along with lymphadenopathy and pleural effusion for further workup and management. Patient is in agreement with discharge planning. HOSPITAL COURSE: As above. DISCHARGE MEDICATIONS: Please see below. ALLERGIES: Please see below. PHYSICAL EXAMINATION: VITAL SIGNS: Please see below. GENERAL: No distress HEENT: Normocephalic, atraumatic, moist mucous membranes NECK: Supple CARDIOVASCULAR EXAMINATION: S1, S2, no murmurs RESPIRATORY EXAMINATION: Clear to auscultation, no wheezing, reproducible ABDOMINAL EXAMINATION: Soft, moderate left upper quadrant tenderness to palpation, nondistended, positive bowel sounds EXTREMITIES: Range of motion intact SKIN: No rash NEUROLOGICAL EXAMINATION: Alert and oriented 3, no focal deficits PSYCHIATRIC EXAMINATION: Calm and cooperative LABORATORY DATA: Please see below. IMAGING: CT showing small left pleural effusion and abdominal lymphadenopathy PROGNOSIS: Fair ACTIVITY: As tolerated. DIET: Regular DISCHARGE PLAN: Follow-up with hematology oncology PCP within 1-2 weeks DISPOSITION: 01 Home, Self-Care. DISCHARGE INSTRUCTIONS: 1. As above. DISCHARGE CONDITION: Stable. TIME SPENT ON DISCHARGE: Greater than 27 minutes. Vital Signs/I&Os Vital Signs Date Time Temp Pulse Resp B/P (MAP) Pulse Ox O2 Delivery O2 Flow Rate FiO2 08/23/19 06:00 98.7 55 17 92/56 (68) 96 Room Air 08/21/19 15:05 100.0 I&O- Last 24 Hours up to 6 AM 08/23/19 06:00 Intake Total 3070 ml Output Total 3800 ml Balance -730 ml Laboratory Data Labs 24H Laboratory Tests 2 08/23/19 05:19: Nucleated Red Blood Cells % (auto) 0.0, Anion Gap 6L, Glomerular Filtration Rate > 60.0, Calcium Level 8.2L CBC/BMP Laboratory Tests 08/23/19 05:19 Discharge Medications Scheduled Ferrous Sulfate (Ferrous Sulfate) 325 Mg Tablet.dr, 1 TAB PO BID Nicotine (Nicotine Patch) 21 Mg Patch.td24, 1 PATCH TD DAILY Scheduled PRN Albuterol Sulfate (Ventolin Hfa) 18 Gm Hfa.aer.ad, 2 PUFF INH Q4-6HP PRN for wheezing, (Reported) Melatonin (Melatonin) 3 Mg Tablet, 3 MG PO QHS PRN for SLEEP, (Reported) Allergies Coded Allergies: Sulfa (Sulfonamide Antibiotics) (Verified Allergy, Unknown, 08/21/19) aspirin (Verified Allergy, Unknown, 08/21/19) Penicillins (Verified Adverse Reaction, Unknown, throat swells, hives, 08/21/19) ZULEIMA JAIME MD Aug 23, 2019 17:49
== END 2019-08-23 12:33 | disposition home or self-care (01) | DRG 663 ==
LOC: M ED 05:49 → M ED INP 08:45 → ENRESERV 10:19 → M MSPAV 10:48
PROVIDERS: ADMIT Internal Medicine; ATTEND Internal Medicine
PROC: 30233N1 Transfusion of Nonautologous Red Blood Cells into Peripheral Vein, Percutaneous Approach (ICD-10-PCS; principal; 2019-08-21)
DX: D50.9 Iron deficiency anemia, unspecified (principal); F32.9 Major depressive disorder, single episode, unspecified; J45.909 Unspecified asthma, uncomplicated; F41.9 Anxiety disorder, unspecified; M54.6 Pain in thoracic spine; J44.9 Chronic obstructive pulmonary disease, unspecified; F17.200 Nicotine dependence, unspecified, uncomplicated; Z96.651 Presence of right artificial knee joint; Z79.1 Long term (current) use of non-steroidal anti-inflammatories (NSAID); Z88.0 Allergy status to penicillin; Z91.14 Patient's other noncompliance with medication regimen; Z88.2 Allergy status to sulfonamides; Z88.6 Allergy status to analgesic agent; Z79.899 Other long term (current) drug therapy; R59.0 Localized enlarged lymph nodes; J90 Pleural effusion, not elsewhere classified

== ENCOUNTER 2019-12-19 13:54 | Outpatient (CLI) | payer OTHER ==
[~2019-12-19] VITALS: Ht 167.6 cm; Wt 64.2 kg
[~2019-12-19 13:54] MED LIST changes: -FLUO10CA15 PO; +FLUO10CA16 PO; +IBUP200T45 PO; +MELA3TAB63 PO; +NICO21PAT TD; +VENTAER INH
[2019-12-19 14:10] VITALS: BP 112/59
[2019-12-19] MEDS ORDERED: FERRIC CARBOXYMALTOSE INJ 750 MG in NS 250 ML IV ONE (14:15)
[2019-12-19 15:57] VITALS: BP 121/58
[2020-02-11] MEDS ORDERED: B-12100021 PO (15:01)
== END 2019-12-19 16:00 | disposition home or self-care (01) ==
LOC: M INFU 13:54
PROVIDERS: ATTEND Internal Medicine Medical Oncology
DX: D50.9 Iron deficiency anemia, unspecified (principal); Z88.0 Allergy status to penicillin; Z88.2 Allergy status to sulfonamides; Z88.6 Allergy status to analgesic agent
CPT/HCPCS: 96365; J1439

== ENCOUNTER → 2021-05-17 | Outpatient (CLI) | payer OTHER ==
[~2021-05-17] MED LIST changes: +B-12100021 PO; -FLUO10CA16 PO; +FLUO10CA18 PO; -IBUP200T45 PO; +IBUP200T46 PO; -MELA3TAB63 PO; +MELA3TAB70 PO; +MIRT-62; +OLAN1TAB16; -OLAN5TAB; -REME15TA
== END ==
LOC: M RAD 14:05
PROVIDERS: ATTEND Physician Assistant Surgical
DX: T84.84XA Pain due to internal orthopedic prosthetic devices, implants and grafts, initial encounter (principal)

== ENCOUNTER → 2021-10-08 | Outpatient (CLI) | payer OTHER | LOC: M WUC 15:41 | PROVIDERS: ATTEND Student in an Organized Health Care Education/Training Program | DX: M25.512 Pain in left shoulder (principal) ==

== ENCOUNTER 2021-12-04 18:09 | Emergency (ER) | payer OTHER ==
[~2021-12-04] VITALS: Ht 167.6 cm; Wt 70.9 kg
[2021-12-04 18:09] VITALS: BP 126/71
[2021-12-04] MEDS ORDERED: FLUO10CA18 (18:17)
[2021-12-04] MEDS ORDERED: NS 1,000 ML IV ONE (19:10)
[2021-12-04] MEDS ORDERED: KETOROLAC 30 MG/ML 1ML VIAL IV ONE (19:10)
[2021-12-04 19:31] LABS: BASO % 0.4 % (0.0-1.0); EOS # 0.2 10^3/uL (0.0-0.5); EOS % 3.6 % (0.0-3.0); HEMATOCRIT 41.8 % (36.0-47.0); HEMOGLOBIN 13.8 g/dl (12.0-15.5); LYMPH # 2.1 10^3/uL (1.5-5.0); LYMPH % 31.1 % (24.0-44.0); MEAN CORPUSCULAR HEMOGLOBIN 31.2 pg (27.0-33.0); MEAN CORPUSCULAR VOLUME 94.6 fl (80.0-96.0); MONO # 0.5 10^3/uL (0.0-0.8); MONO % 6.9 % (2.0-8.0); NEUTROPHILS # 3.9 10^3/uL (1.5-8.5); NEUTROPHILS % 57.7 % (36.0-66.0); PLATELET COUNT, AUTOMATED 224 10^3/uL (150-450); RED BLOOD COUNT 4.42 10^6/uL (4.00-5.40); WHITE BLOOD COUNT 6.7 10^3/uL (4.0-10.0)
[2021-12-04 19:44] LABS: INR 0.97; PROTHROMBIN TIME 13.3 SECONDS (12.7-14.5)
[2021-12-04 19:45] LABS: PARTIAL THROMBOPLASTIN TIME 31.5 SECONDS (25.9-37.0)
[2021-12-04 19:47] LABS: D-DIMER QUANT 2382.55 ng/ml (<500)
[2021-12-04 19:49] LABS: ERYTHROCYTE SEDIMENTATION RATE 29 mm/hr (0-20)
[2021-12-04 20:03] LABS: ALBUMIN 3.5 GM/DL (3.2-5.2); ALT/SGPT 20 U/L (12-78); BILIRUBIN,DIRECT < 0.1 MG/DL (0.0-0.2); BILIRUBIN,TOTAL 0.3 MG/DL (0.2-1.0); BLOOD UREA NITROGEN 10 MG/DL (7-18); C REACTIVE PROTEIN QUANTITATIV 2.33 MG/DL (0.00-0.30); CARBON DIOXIDE LEVEL 23 MEQ/L (21-32); CHLORIDE LEVEL 109 MEQ/L (98-107); CREATININE FOR GFR 0.61 MG/DL (0.55-1.30); FREE T4 1.06 NG/DL (0.76-1.46); GLOMERULAR FILTRATION RATE > 60.0 (>58); GLUCOSE, FASTING 94 MG/DL (70-100); LIPASE 138 U/L (73-393); NT-PRO BNP 46 PG/ML (<125); SODIUM LEVEL 141 MEQ/L (136-145); TOTAL PROTEIN 7.1 GM/DL (6.4-8.2)
[2021-12-04] MEDS ORDERED: ISOVUE-370 76% 100ML VIAL As Ordered ONE (20:16)
[2021-12-04] MEDS ORDERED: TRAM50TA2 PO (22:37)
== END 2021-12-04 23:12 | disposition home or self-care (01) ==
LOC: M ED 18:09
DX: S22.31XA Fracture of one rib, right side, initial encounter for closed fracture (principal); N83.291 Other ovarian cyst, right side; J43.9 Emphysema, unspecified; R91.1 Solitary pulmonary nodule; F17.210 Nicotine dependence, cigarettes, uncomplicated; F12.10 Cannabis abuse, uncomplicated; Z88.0 Allergy status to penicillin; Z88.6 Allergy status to analgesic agent; Z88.1 Allergy status to other antibiotic agents; Z88.2 Allergy status to sulfonamides
CPT/HCPCS: 71046; 71100; 71275; 74177; 80048; 80076; 83605; 83690; 83880; 84439; 84443; 84702; 85025; 85379; 85610; 85652; 85730; 86140; 93005; 96361; 96374; 99284; J1885; Q9967

== ENCOUNTER 2022-02-02 15:51 | Emergency (ER) | payer OTHER ==
[~2022-02-02] VITALS: Ht 170.2 cm; Wt 74.1 kg
[~2022-02-02 15:51] MED LIST changes: +FLUO10CA18
[2022-02-02 15:52] VITALS: BP 117/65
== END 2022-02-02 16:21 | disposition left against medical advice (07) ==
LOC: M ED 15:51
DX: Z53.21 Procedure and treatment not carried out due to patient leaving prior to being seen by health care provider (principal)

== ENCOUNTER 2022-02-24 12:35 | Emergency (ER) | payer OTHER ==
[~2022-02-24] VITALS: Ht 167.6 cm; Wt 73.2 kg
[2022-02-24 12:36] VITALS: BP 150/63
[2022-02-24] MEDS ORDERED: ACET325C5 PO (12:45)
== END 2022-02-24 15:06 | disposition left against medical advice (07) ==
LOC: M ED 12:35
DX: Z53.21 Procedure and treatment not carried out due to patient leaving prior to being seen by health care provider (principal)

== ENCOUNTER → 2022-08-31 | Outpatient (REF) | payer OTHER ==
[~2022-08-31] MED LIST changes: +ACET325C5 PO
[2022-08-31 17:05] LABS: IRON (FE) 28 UG/DL (50-170); PERCENT SATURATION 10.3 % (13.2-45.0); TOTAL IRON BINDING CAPACITY 271 UG/DL (250-425)
[2022-08-31 17:09] LABS: ALBUMIN 3.7 G/DL (3.2-5.2); ALKALINE PHOSPHATASE 96 U/L (46-116); ALT/SGPT 12 U/L (7.0-40); AST/SGOT 12 U/L (<34); BASO # 0.1 10^3/uL (0.0-0.2); BASO % 0.7 % (0.0-1.0); BILIRUBIN,TOTAL 0.4 MG/DL (0.3-1.2); BLOOD UREA NITROGEN 10 MG/DL (9-23); CALCIUM LEVEL 8.8 MG/DL (8.5-10.1); CARBON DIOXIDE LEVEL 25 MMOL/L (20-31); CHLORIDE LEVEL 104 MMOL/L (98-107); CHOLESTEROL LEVEL 143 MG/DL (<200); CHOLESTEROL RISK RATIO 3.81 (<5); CREATININE FOR GFR 0.64 MG/DL (0.55-1.30); EOS # 0.3 10^3/uL (0.0-0.5); EOS % 2.8 % (0.0-3.0); FERRITIN 106.2 NG/ML (7.3-270.7); GLOMERULAR FILTRATION RATE > 60.0 (>58); GLUCOSE, FASTING 113 MG/DL (60-100); HDL CHOLESTEROL 37.5 MG/DL (>40); HEMATOCRIT 45.6 % (36.0-47.0); HEMOGLOBIN 14.6 g/dl (12.0-15.5); LDL CHOLESTEROL 83.3 MG/DL (<100); LYMPH # 1.7 10^3/uL (1.5-5.0); LYMPH % 18.8 % (24.0-44.0); MEAN CORPUSCULAR HEMOGLOBIN 30.3 pg (27.0-33.0); MEAN CORPUSCULAR VOLUME 94.6 fl (80.0-96.0); MONO # 0.7 10^3/uL (0.0-0.8); MONO % 8.1 % (2.0-8.0); NEUTROPHILS # 6.4 10^3/uL (1.5-8.5); NEUTROPHILS % 69.2 % (36.0-66.0); NON-HDL-C 105.5 MG/DL; PLATELET COUNT, AUTOMATED 231 10^3/uL (150-450); POTASSIUM SERUM 3.9 MMOL/L (3.5-5.1); RED BLOOD COUNT 4.82 10^6/uL (4.00-5.40); SODIUM LEVEL 135 MMOL/L (136-145); TOTAL 25(OH) VITAMIN D 26.8 NG/ML (20.0-100.0); TOTAL PROTEIN 7.1 G/DL (5.7-8.2); TRIGLYCERIDES LEVEL 111 MG/DL (<150); WHITE BLOOD COUNT 9.2 10^3/uL (4.0-10.0)
== END ==
LOC: M LAB REF 16:39
PROVIDERS: ATTEND Nurse Practitioner Family
DX: Z68.24 Body mass index [BMI] 24.0-24.9, adult (principal)

== ENCOUNTER → 2022-11-08 | Outpatient (CLI) | payer OTHER | LOC: M EKG 12:29 | PROVIDERS: ATTEND Nurse Practitioner Psychiatric/Mental Health | DX: F31.32 Bipolar disorder, current episode depressed, moderate (principal) ==

== ENCOUNTER → 2023-11-01 | Outpatient (REF) ==
[~2023-11-01] MED LIST changes: -EFFE37.5 PO; +EFFE37.52 PO; +FLUO-290; +FLUO-290 PO; -FLUO10CA18; -FLUO10CA18 PO; -MIRT-62; +MIRT-88
== END ==
LOC: M PLAIMG 10:53
PROVIDERS: ATTEND Internal Medicine
DX: R52 Pain, unspecified (principal)

== ENCOUNTER → 2023-12-04 | Outpatient (CLI) | payer OTHER ==
[~2023-12-04] MED LIST changes: +FLUO-365 PO; -FLUO20CA22 PO
== END ==
LOC: M WUC 12:02
PROVIDERS: ATTEND Nurse Practitioner Family
DX: M25.551 Pain in right hip (principal)

== ENCOUNTER → 2023-12-04 | Outpatient (REF) | payer OTHER ==
[2023-12-04 19:39] LABS: BASO # 0.1 10^3/uL (0.0-0.2); BASO % 0.9 % (0.0-1.0); EOS # 0.2 10^3/uL (0.0-0.5); EOS % 2.9 % (0.0-3.0); HEMATOCRIT 39.6 % (36.0-47.0); HEMOGLOBIN 12.6 g/dl (12.0-15.5); LYMPH # 1.8 10^3/uL (1.5-5.0); LYMPH % 25.2 % (24.0-44.0); MEAN CORPUSCULAR HEMOGLOBIN 29.4 pg (27.0-33.0); MEAN CORPUSCULAR HGB CONC 31.8 g/dl (32.0-36.5); MEAN CORPUSCULAR VOLUME 92.3 fl (80.0-96.0); MONO # 0.5 10^3/uL (0.0-0.8); MONO % 7.1 % (2.0-8.0); NEUTROPHILS # 4.4 10^3/uL (1.5-8.5); NEUTROPHILS % 63.6 % (36.0-66.0); PLATELET COUNT, AUTOMATED 232 10^3/uL (150-450); RED BLOOD COUNT 4.29 10^6/uL (4.00-5.40); WHITE BLOOD COUNT 6.9 10^3/uL (4.0-10.0)
[2023-12-04 19:44] LABS: ERYTHROCYTE SEDIMENTATION RATE 92 mm/hr (0-20)
[2023-12-04 19:58] LABS: ALBUMIN 3.3 G/DL (3.2-5.2); ALKALINE PHOSPHATASE 104 U/L (46-116); ALT/SGPT 16 U/L (7.0-40); AST/SGOT 12 U/L (<34); BILIRUBIN,TOTAL 0.3 MG/DL (0.3-1.2); BLOOD UREA NITROGEN 13 MG/DL (9-23); CALCIUM LEVEL 8.4 MG/DL (8.5-10.1); CARBON DIOXIDE LEVEL 26 MMOL/L (20-31); CHLORIDE LEVEL 109 MMOL/L (98-107); CHOLESTEROL LEVEL 145 MG/DL (<200); CHOLESTEROL RISK RATIO 3.45 (<5); GLOMERULAR FILTRATION RATE > 60.0 (>58); GLUCOSE, FASTING 84 MG/DL (60-100); LDL CHOLESTEROL 83.2 MG/DL (<100); MAGNESIUM LEVEL 2.1 MG/DL (1.8-2.4); POTASSIUM SERUM 4.9 MMOL/L (3.5-5.1); SODIUM LEVEL 138 MMOL/L (136-145); TOTAL PROTEIN 6.8 G/DL (5.7-8.2); TRIGLYCERIDES LEVEL 99 MG/DL (<150)
[2023-12-04 19:59] LABS: THYROID STIMULATING HORMONE 2.769 uIU/ML (0.55-4.78)
[2023-12-04 20:00] LABS: TOTAL 25(OH) VITAMIN D 17.5 NG/ML (20.0-100.0)
[2023-12-04 20:04] LABS: HEMOGLOBIN A1c 5.1 % (4.0-6.0)
[2023-12-04 21:44] LABS: RHEUMATOID FACTOR QUANT 37.6 IU/ML (<14)
== END ==
LOC: M LAB REF 16:25
PROVIDERS: ATTEND Nurse Practitioner Family
DX: M06.9 Rheumatoid arthritis, unspecified (principal); E66.9 Obesity, unspecified; E55.9 Vitamin D deficiency, unspecified

== ENCOUNTER → 2024-01-30 | Outpatient (CLI) | payer OTHER ==
[2024-01-30 11:31] LABS: BASO % 0.5 % (0.0-1.0); EOS # 0.2 10^3/uL (0.0-0.5); EOS % 2.3 % (0.0-3.0); HEMATOCRIT 37.5 % (36.0-47.0); HEMOGLOBIN 11.7 g/dl (12.0-15.5); LYMPH # 1.5 10^3/uL (1.5-5.0); LYMPH % 18.8 % (24.0-44.0); MEAN CORPUSCULAR HEMOGLOBIN 28.4 pg (27.0-33.0); MEAN CORPUSCULAR HGB CONC 31.2 g/dl (32.0-36.5); MONO # 0.6 10^3/uL (0.0-0.8); MONO % 7.1 % (2.0-8.0); NEUTROPHILS # 5.6 10^3/uL (1.5-8.5); NEUTROPHILS % 70.8 % (36.0-66.0); PLATELET COUNT, AUTOMATED 229 10^3/uL (150-450); RED BLOOD COUNT 4.12 10^6/uL (4.00-5.40); WHITE BLOOD COUNT 7.8 10^3/uL (4.0-10.0)
[2024-01-30 12:11] LABS: ALBUMIN 3.2 G/DL (3.2-5.2); ALKALINE PHOSPHATASE 91 U/L (46-116); ALT/SGPT < 9 U/L (7.0-40); AST/SGOT < 8 U/L (<34); BILIRUBIN,TOTAL 0.3 MG/DL (0.3-1.2); BLOOD UREA NITROGEN 17 MG/DL (9-23); CALCIUM LEVEL 8.9 MG/DL (8.5-10.1); CARBON DIOXIDE LEVEL 28 MMOL/L (20-31); CHLORIDE LEVEL 104 MMOL/L (98-107); FERRITIN 108.6 NG/ML (7.3-270.7); GLOMERULAR FILTRATION RATE > 60.0 (>58); GLUCOSE, FASTING 90 MG/DL (60-100); IRON (FE) 40 UG/DL (50-170); PERCENT SATURATION 14.9 % (13.2-45.0); POTASSIUM SERUM 4.8 MMOL/L (3.5-5.1); SODIUM LEVEL 137 MMOL/L (136-145); TOTAL IRON BINDING CAPACITY 268 UG/DL (250-425); TOTAL PROTEIN 7.2 G/DL (5.7-8.2)
== END ==
LOC: M EKG 10:28
PROVIDERS: ATTEND Nurse Practitioner Family
DX: Z01.818 Encounter for other preprocedural examination (principal)

== ENCOUNTER 2024-02-17 17:39 | Emergency (ER) | payer OTHER ==
[~2024-02-17] VITALS: Ht 170.2 cm; Wt 84.6 kg
[2024-02-17] MEDS ORDERED: OXYC10TA3 PO (17:48)
[2024-02-17] MEDS ORDERED: ELIQ2.5T PO (17:48)
[2024-02-17] MEDS ORDERED: CYCL5TAB PO (17:49)
[2024-02-17] MEDS ORDERED: MM S100C PO (17:49)
[2024-02-17 18:17] LABS: BASO % 0.2 % (0.0-1.0); EOS % 0.3 % (0.0-3.0); HEMATOCRIT 29.4 % (36.0-47.0); HEMOGLOBIN 9.7 g/dl (12.0-15.5); LYMPH # 2.5 10^3/uL (1.5-5.0); MEAN CORPUSCULAR HEMOGLOBIN 29.2 pg (27.0-33.0); MEAN CORPUSCULAR VOLUME 88.6 fl (80.0-96.0); MONO # 1.5 10^3/uL (0.0-0.8); MONO % 11.7 % (2.0-8.0); NEUTROPHILS # 8.3 10^3/uL (1.5-8.5); NEUTROPHILS % 67.3 % (36.0-66.0); PLATELET COUNT, AUTOMATED 233 10^3/uL (150-450); RED BLOOD COUNT 3.32 10^6/uL (4.00-5.40); WHITE BLOOD COUNT 12.4 10^3/uL (4.0-10.0)
[2024-02-17 18:29] LABS: INR 1.42; PARTIAL THROMBOPLASTIN TIME 34.9 SECONDS (24.8-34.2); PROTHROMBIN TIME 16.9 SECONDS (12.5-14.5)
[2024-02-17 19:45] VITALS: BP 130/84; TEMP 98; O2SAT 95
== END 2024-02-17 21:43 | disposition home or self-care (01) ==
LOC: M ED 17:39
DX: L76.22 Postprocedural hemorrhage of skin and subcutaneous tissue following other procedure (principal); J44.9 Chronic obstructive pulmonary disease, unspecified; J45.909 Unspecified asthma, uncomplicated; F32.A Depression, unspecified; Z88.0 Allergy status to penicillin; Z88.2 Allergy status to sulfonamides; Z88.8 Allergy status to other drugs, medicaments and biological substances

== ENCOUNTER 2024-02-18 15:47 | Emergency (ER) | payer OTHER ==
[~2024-02-18] VITALS: Ht 170.2 cm; Wt 88.2 kg
[~2024-02-18 15:47] MED LIST changes: +CYCL5TAB PO; +ELIQ2.5T PO; +MM S100C PO; +OXYC10TA3 PO
[2024-02-18 17:00] LABS: HEMATOCRIT 29.1 % (36.0-47.0); HEMOGLOBIN 9.4 g/dl (12.0-15.5); MEAN CORPUSCULAR HGB CONC 32.3 g/dl (32.0-36.5); MEAN CORPUSCULAR VOLUME 89.8 fl (80.0-96.0); PLATELET COUNT, AUTOMATED 264 10^3/uL (150-450); RED BLOOD COUNT 3.24 10^6/uL (4.00-5.40)
[2024-02-18 17:52] VITALS: BP 117/71; TEMP 98.6; O2SAT 96
== END 2024-02-18 17:57 | disposition home or self-care (01) ==
LOC: EDBD 15:47 → M ED 15:47
DX: L76.32 Postprocedural hematoma of skin and subcutaneous tissue following other procedure (principal); J45.909 Unspecified asthma, uncomplicated; J44.9 Chronic obstructive pulmonary disease, unspecified; Z88.0 Allergy status to penicillin; Z88.2 Allergy status to sulfonamides; Z88.8 Allergy status to other drugs, medicaments and biological substances; Z79.51 Long term (current) use of inhaled steroids; Z79.899 Other long term (current) drug therapy

== ENCOUNTER → 2024-04-03 | Outpatient (REF) | payer OTHER ==
[2024-04-03 18:26] LABS: AMORPHOUS SEDIMENT SMALL (NEGATIVE); APPEARANCE, URINE CLOUDY (CLEAR); BACTERIA, URINE AUTO NEGATIVE (NEGATIVE); BILIRUBIN, URINE AUTO NEGATIVE (NEGATIVE); BLOOD, URINE BLOOD NEGATIVE (NEGATIVE); COLOR, URINE YELLOW (YELLOW); GLUCOSE, URINE (UA) AUTO NEGATIVE (NEGATIVE); KETONE, URINE AUTO NEGATIVE (NEGATIVE); LEUKOCYTE ESTERASE, URINE AUTO TRACE (NEGATIVE); MUCUS, URINE SMALL (NEGATIVE); NITRITE, URINE AUTO NEGATIVE (NEGATIVE); PROTEIN, URINE AUTO NEGATIVE (NEGATIVE); RBC, URINE AUTO 1 /HPF (0-3); SPECIFIC GRAVITY URINE AUTO 1.015 (1.002-1.035); SQUAMOUS EPITHELIAL CELL UR AU 4 /HPF (0-6); UROBILINOGEN, URINE AUTO 0.2 mg/dL (0.0-2.0); WBC, URINE AUTO 4 /HPF (0-3)
== END ==
LOC: M SMT 17:14
PROVIDERS: ATTEND Nurse Practitioner Family
DX: R32 Unspecified urinary incontinence (principal)

== ENCOUNTER → 2024-06-05 | Outpatient (CLI) | payer OTHER ==
[~2024-06-05] MED LIST changes: -CYCL5TAB PO; +CYCL5TAB4 PO
== END ==
LOC: M WHC 15:31
PROVIDERS: ATTEND Nurse Practitioner Family
DX: Z12.31 Encounter for screening mammogram for malignant neoplasm of breast (principal)

== ENCOUNTER → 2024-07-24 | Outpatient (CLI) | payer OTHER | LOC: M WUC 13:09 | PROVIDERS: ATTEND Nurse Practitioner Family | DX: R05.9 Cough, unspecified (principal); M54.89 Other dorsalgia ==

== ENCOUNTER 2024-09-20 08:56 | Day surgery (SDC) | payer OTHER ==
[~2024-09-20] VITALS: Ht 170.2 cm; Wt 87.2 kg
[~2024-09-20 08:56] MED LIST changes: +PRED10TA2 PO
[2024-09-20] MEDS ORDERED: propofoL 200 MG/20 ML VIAL As Ordered ONE (09:36)
[2024-09-20] MEDS ORDERED: LIDOCAINE 2% 100MG/5ML SDV (FOR ANES.) As Ordered ONE (09:36)
[2024-09-20 10:04] VITALS: TEMP 97
[2024-09-20 10:21] VITALS: BP 123/76; O2SAT 98
== END 2024-09-20 10:26 | disposition home or self-care (01) ==
LOC: M OPP 08:56
PROVIDERS: ATTEND Surgery
DX: Z12.11 Encounter for screening for malignant neoplasm of colon (principal); D12.0 Benign neoplasm of cecum; Z88.6 Allergy status to analgesic agent; Z88.0 Allergy status to penicillin; Z88.2 Allergy status to sulfonamides; Z88.8 Allergy status to other drugs, medicaments and biological substances; Z79.899 Other long term (current) drug therapy; J44.9 Chronic obstructive pulmonary disease, unspecified; F17.210 Nicotine dependence, cigarettes, uncomplicated

== ENCOUNTER → 2024-10-03 | Outpatient (REF) | payer OTHER ==
[2024-10-03 19:08] LABS: PERCENT SATURATION 7.7 % (13.2-45.0)
[2024-10-03 19:09] LABS: FOLATE 4.8 NG/ML (>5.4); TOTAL 25(OH) VITAMIN D 17.8 NG/ML (20.0-100.0)
[2024-10-03 19:10] LABS: BASO % 0.6 % (0.0-1.0); EOS # 0.2 10^3/uL (0.0-0.5); HEMATOCRIT 38.3 % (36.0-47.0); HEMOGLOBIN 11.9 g/dl (12.0-15.5); LYMPH # 2.1 10^3/uL (1.5-5.0); LYMPH % 31.9 % (24.0-44.0); MEAN CORPUSCULAR HEMOGLOBIN 27.1 pg (27.0-33.0); MEAN CORPUSCULAR HGB CONC 31.1 g/dl (32.0-36.5); MEAN CORPUSCULAR VOLUME 87.2 fl (80.0-96.0); MONO # 0.5 10^3/uL (0.0-0.8); MONO % 7.3 % (2.0-8.0); NEUTROPHILS # 3.7 10^3/uL (1.5-8.5); PLATELET COUNT, AUTOMATED 291 10^3/uL (150-450); RED BLOOD COUNT 4.39 10^6/uL (4.00-5.40); WHITE BLOOD COUNT 6.6 10^3/uL (4.0-10.0)
== END ==
LOC: M LAB REF 17:42
PROVIDERS: ATTEND Nurse Practitioner Family
DX: E55.9 Vitamin D deficiency, unspecified (principal); D50.8 Other iron deficiency anemias

== ENCOUNTER → 2024-10-09 | Outpatient (CLI) | payer OTHER ==
[2024-10-09 13:19] LABS: BASO % 0.5 % (0.0-1.0); EOS # 0.2 10^3/uL (0.0-0.5); EOS % 2.7 % (0.0-3.0); HEMOGLOBIN 12.7 g/dl (12.0-15.5); LYMPH # 2.1 10^3/uL (1.5-5.0); LYMPH % 27.5 % (24.0-44.0); MEAN CORPUSCULAR HEMOGLOBIN 26.7 pg (27.0-33.0); MEAN CORPUSCULAR VOLUME 86.3 fl (80.0-96.0); MONO # 0.5 10^3/uL (0.0-0.8); MONO % 6.2 % (2.0-8.0); NEUTROPHILS # 4.8 10^3/uL (1.5-8.5); NEUTROPHILS % 62.8 % (36.0-66.0); PLATELET COUNT, AUTOMATED 325 10^3/uL (150-450); RED BLOOD COUNT 4.75 10^6/uL (4.00-5.40); WHITE BLOOD COUNT 7.6 10^3/uL (4.0-10.0)
[2024-10-09 13:24] LABS: ERYTHROCYTE SEDIMENTATION RATE > 130 mm/hr (0-20)
[2024-10-09 13:47] LABS: ALBUMIN 3.3 G/DL (3.2-5.2); ALKALINE PHOSPHATASE 95 U/L (35-104); ALT/SGPT 14 U/L (7.0-40); AST/SGOT 9 U/L (<34); BILIRUBIN,TOTAL 0.2 MG/DL (0.3-1.2); BLOOD UREA NITROGEN 18 MG/DL (9-23); CALCIUM LEVEL 8.9 MG/DL (8.5-10.1); CARBON DIOXIDE LEVEL 24 MMOL/L (20-31); CHLORIDE LEVEL 108 MMOL/L (98-107); GLOMERULAR FILTRATION RATE > 90.0 (>58); GLUCOSE, FASTING 116 MG/DL (60-100); POTASSIUM SERUM 4.3 MMOL/L (3.5-5.1); SODIUM LEVEL 139 MMOL/L (136-145); TOTAL PROTEIN 7.1 G/DL (5.7-8.2)
[2024-10-09 14:35] LABS: RHEUMATOID FACTOR QUANT 137.1 IU/ML (<14)
[2024-10-10 16:26] LABS: SSA SJOGRENS A <1.0 NEG AI (<1.0 NEG); SSB SJOGRENS B <1.0 NEG AI (<1.0 NEG)
== END ==
LOC: M LAB 12:44
PROVIDERS: ATTEND Nurse Practitioner Family
DX: M06.9 Rheumatoid arthritis, unspecified (principal)

== ENCOUNTER → 2024-12-23 | Outpatient (CLI) | payer OTHER ==
[~2024-12-23] MED LIST changes: +LIDO1ADH93 TD; -LIDO5DIS41 TD
== END ==
LOC: M PLAIMG 13:37
PROVIDERS: ATTEND Internal Medicine Pulmonary Disease
DX: R06.02 Shortness of breath (principal)

== ENCOUNTER → 2024-12-31 | Outpatient (CLI) | payer OTHER | LOC: M CARPUL 08:39 | PROVIDERS: ATTEND Internal Medicine Pulmonary Disease | DX: J44.9 Chronic obstructive pulmonary disease, unspecified (principal) ==

== ENCOUNTER → 2025-01-17 | Outpatient (REF) | payer OTHER ==
[~2025-01-17] MED LIST changes: +ACET-1515 PO; -ACET650T15 PO; -PROZ20CA11 PO; +PROZ20CA12 PO
== END ==
LOC: M SFHCRHEU 14:05
PROVIDERS: ATTEND Internal Medicine
DX: R77.8 Other specified abnormalities of plasma proteins (principal)

== ENCOUNTER → 2025-01-23 | Outpatient (CLI) | payer OTHER | LOC: M RAD 11:52 | PROVIDERS: ATTEND Family Medicine Addiction Medicine | DX: M25.552 Pain in left hip (principal) ==

== ENCOUNTER → 2025-03-11 | Outpatient (CLI) | payer OTHER ==
[~2025-03-11] MED LIST changes: -IBUP-1022 PO; +IBUP600T42 PO; -ZOLP5TAB PO; +ZOLP5TAB9 PO
== END ==
LOC: M SLEEP HO 10:41
PROVIDERS: ATTEND Internal Medicine
DX: G47.33 Obstructive sleep apnea (adult) (pediatric) (principal)

== ENCOUNTER 2025-04-05 21:38 | Emergency (ER) | payer OTHER ==
[~2025-04-05] VITALS: Ht 170.2 cm; Wt 87.8 kg
[2025-04-05] MEDS ORDERED: ACET-1593 PO (21:48)
[2025-04-05] MEDS ORDERED: HYDR200T46 PO (21:48)
[2025-04-05] MEDS ORDERED: PRED10TA2 PO (21:48)
[2025-04-05 22:25] LABS: BASO # 0.1 10^3/uL (0.0-0.2); BASO % 0.4 % (0.0-1.0); EOS # 0.2 10^3/uL (0.0-0.5); EOS % 1.4 % (0.0-3.0); LYMPH # 4.3 10^3/uL (1.5-5.0); LYMPH % 32.1 % (24.0-44.0); MONO # 0.9 10^3/uL (0.0-0.8); MONO % 6.9 % (2.0-8.0); NEUTROPHILS # 7.8 10^3/uL (1.5-8.5); NEUTROPHILS % 58.4 % (36.0-66.0); PLATELET COUNT, AUTOMATED 278 10^3/uL (150-450)
[2025-04-05 22:40] LABS: INR 0.92
[2025-04-05 22:48] LABS: ALT/SGPT 14 U/L (7.0-40); AST/SGOT 13 U/L (<34); CALCIUM LEVEL 8.8 MG/DL (8.5-10.1); CARBON DIOXIDE LEVEL 26 MMOL/L (20-31); CHLORIDE LEVEL 106 MMOL/L (98-107); CREATININE FOR GFR 0.81 MG/DL (0.55-1.30); GLOMERULAR FILTRATION RATE > 90.0 (>58); POTASSIUM SERUM 4.4 MMOL/L (3.5-5.1); SODIUM LEVEL 141 MMOL/L (136-145)
[2025-04-06] MEDS ORDERED: ISOVUE-370 76% 100 ML VIAL As Ordered ONE (00:04)
[2025-04-06 01:00] VITALS: BP 109/54
[2025-04-06] MEDS ORDERED: HYDR25SU61 PR (01:13)
[2025-04-06 01:15] VITALS: O2SAT 98
[2025-04-06 01:21] VITALS: TEMP 97.1
== END 2025-04-06 01:26 | disposition home or self-care (01) ==
LOC: M ED 21:38
DX: K92.2 Gastrointestinal hemorrhage, unspecified (principal); K64.8 Other hemorrhoids; F17.210 Nicotine dependence, cigarettes, uncomplicated; Z88.0 Allergy status to penicillin; Z88.2 Allergy status to sulfonamides; Z88.6 Allergy status to analgesic agent; Z88.8 Allergy status to other drugs, medicaments and biological substances
CPT/HCPCS: 36415; 74174; 80048; 80076; 83605; 83690; 85025; 85610; 85730; 86850; 86900; 86901; 99284; Q9967

== ENCOUNTER → 2025-04-24 | Outpatient (REF) | payer OTHER ==
[~2025-04-24] MED LIST changes: +ACET-1593 PO; +HYDR200T46 PO; +HYDR25SU61 PR
[2025-04-24 16:44] LABS: BASO # 0.1 10^3/uL (0.0-0.2); BASO % 0.5 % (0.0-1.0); EOS # 0.2 10^3/uL (0.0-0.5); EOS % 1.6 % (0.0-3.0); LYMPH # 3.0 10^3/uL (1.5-5.0); LYMPH % 27.3 % (24.0-44.0); MONO # 0.7 10^3/uL (0.0-0.8); MONO % 6.1 % (2.0-8.0); NEUTROPHILS # 6.9 10^3/uL (1.5-8.5); NEUTROPHILS % 64.1 % (36.0-66.0); PLATELET COUNT, AUTOMATED 265 10^3/uL (150-450)
[2025-04-24 17:10] LABS: ALT/SGPT 14 U/L (7.0-40); AST/SGOT 14 U/L (<34); CALCIUM LEVEL 9.1 MG/DL (8.5-10.1); CARBON DIOXIDE LEVEL 23 MMOL/L (20-31); CHLORIDE LEVEL 110 MMOL/L (98-107); CHOLESTEROL LEVEL 147 MG/DL (<200); CHOLESTEROL RISK RATIO 4.09 (<5); CREATININE FOR GFR 0.67 MG/DL (0.55-1.30); GLOMERULAR FILTRATION RATE > 90.0 (>58); IRON (FE) 28 UG/DL (50-170); LDL CHOLESTEROL 73.9 MG/DL (<100); NON-HDL-C 111.1 MG/DL; PERCENT SATURATION 9.7 % (13.2-45.0); POTASSIUM SERUM 4.1 MMOL/L (3.5-5.1); SODIUM LEVEL 139 MMOL/L (136-145); TRIGLYCERIDES LEVEL 186 MG/DL (<150)
[2025-04-24 17:12] LABS: TOTAL 25(OH) VITAMIN D 30.4 NG/ML (20.0-100.0)
[2025-04-24 17:52] LABS: ESTIMATED AVERAGE GLUCOSE 111.0 MG/DL (60-110)
== END ==
LOC: M LAB REF 16:21
PROVIDERS: ATTEND Physician Assistant
DX: K64.8 Other hemorrhoids (principal); E55.9 Vitamin D deficiency, unspecified; E66.9 Obesity, unspecified

== ENCOUNTER → 2025-04-28 | Outpatient (CLI) | payer OTHER | LOC: M WUC 13:22 | DX: M25.572 Pain in left ankle and joints of left foot (principal) ==